=== PATIENT | male | born 1945 | race Caucasian/White ===

== ENCOUNTER 2018-09-23 07:03 | Emergency (ER) | payer MEDICARE ==
--- OUTSIDE RECORDS SUMMARY | 2018-09-23 07:12 | XMS REPORT | Continuity of Care Document ---
:1945 External Reference #:[id number] Author Name Jenny Desir Care Team Providers Name Role Phone Jeniffer Monzon MD Primary Care Physician Unavailable Payers Date Identification Numbers Payment Provider Subscriber Policy Number: [id number] [employer] Keith Oseguera PayID: [id number] [address] [place] [address] Expires: 2012 Policy Number: [id number] [facility] Zo Oseguera Group Number: [id number] [address] PayID: [id number] [place] [address] Effective: 2011 Policy Number: [id number] [facility] Keith Oseguera Onset: 2011 PayID: [id number] [address] [place] [address] Advance Directives Type Date Description Status Comment Other Directive 12/27/2012 Health Care Proxy Current and Verified Problems Active Problems Provider Date Hypoparathyroidism Jeniffer Monzon M.D. Onset: 01/23/2010 Hypothyroidism Jeniffer Monzon M.D. Onset: 07/31/2013 Psoriasis Jeniffer Monzon M.D. Onset: 01/23/2010 Kidney stone Jeniffer Monzon M.D. 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 Occasionally smokes marijuana. Smoking Status Reviewed: 09/21/18 Patient does not smoke cigarettes. Occasionally smokes marijuana. Exercise Does not exercise Type/Frequency Allergies, Adverse Reactions, Alerts Active Allergies Reaction Severity Comments Date Lipitor Elevated liver enzymes Moderate 10/02/2009 Horse-derived Products 10/02/2009 Statins 06/14/2013 Medications Active Medications SIG Qnty Indications Ordering Date Provider Levothyrn(S) Tab 0.175MG Take 1 Tablet 90units Jeniffer 11/12/19 Daily Nicolás M.DBerna 18 0.175mg Shingrix 1 dose 1units Jeniffer 07/29/19 50mcg Suspension Rec intramuscular Gus Monzon.DBerna 18 Nasonex spray two sprays 17gm R09.81 Jeniffer 04/19/19 50mcg/Act Suspension in each nostril Arlette Monzon 18 twice daily Drisdol take 1 capsule by 30caps Jeniffer 05/13/19 [id number] Capsules mouth every 3 days Nicolás M.DBerna 16 Potassium Chloride ER take 1 capsule by 30caps Jeniffer 11/01/19 10Meq mouth every day Lidia MonzonDBerna 14 Capsules ER Zetia Take 1 Tablet 90tabs Jeniffer 02/03/20 10mg Tablets Daily Nicolás M.DBerna 11 Calcium 600 2 tablets twice 360tabs Jeniffer 10/04/19 600mg Tablets daily Nicolás M.DBerna 10 Hydrocortisone Valerate topical twice 60g Jeniffer 10/04/19 0.2% daily to area as Nicolás M.D. 10 Cream needed Taclonex apply topically 100units Jeniffer 10/04/19 0.005-0.064% two times daily as Nicolás M.D. 10 Ointment needed Hydrochlorothiazide Take 1 Tablet 90tabs Jeniffer 25mg Daily Arlette Monzon 00 Tablets Dutasteride Pancho, 0.5mg Capsules MD Rk 00 Ibuprofen as needed Unknown 200mg Capsules 00 Tylenol 8 Hour as needed Unknown 650mg Tablets 00 ER Tamsulosin HCL 1 po bid 60caps [facility] 0.4mg Capsules Arlette Monzon 00 History Medications Oseltamivir Phosphate 1 by mouth once 10caps [facility] 03/17/2017 - daily for 10 days Arlette Monzon 03/28/2017 75mg Capsules Tamiflu 1 by mouth twice 10caps Monica Carroll, 06/11/2015 - 75mg Capsules a day x 5 days N.P. 06/16/2015 Ergocalciferol 1 tab by mouth 7caps [facility] 04/15/2015 - every third day Arlette Monzon 05/13/2015 [id number] Capsules Diphenoxylate-Atropin 1-2 tabs up to 4 40tabs 787.91 Ryan Dale NP 2013 - e times a day as 05/20/2014 2.5-0.025mg Tablets needed Oxycodone-Acetaminoph One to two tabs 30tabs Immanuel Niño 07/31/2013 - en by mouth every M.DBerna 09/24/2013 5-325mg Tablets 4-6 hours as needed for pain Tramadol HCL 1-2 tablets every 40tabs [facility] 05/26/2013 - 50mg 6 hours as needed Arlette Monzon 09/24/2013 Tablets up to max 6 daily Fluticasone 2 intranasal 16gm 381.81 [facility] 01/05/2013 - Propionate puffs once daily Arlette Monzon 05/20/2014 50mcg/Act Suspension Sulfamethoxazole/Trim 1 tablet twice 14tabs 782.1 [facility] 10/10/2012 - ethoprim DS daily for 7 days Arlette Monzon 01/05/2013 800-160mg Tablets Mupirocin apply to skin 22gm 782.1 [facility] 10/10/2012 - 2% Ointment lesions twice Arlette Monzon 01/05/2013 daily Triamcinolone apply bid until 30gm 686.9 Monica Carroll, 07/13/2012 - Acetonide clear N.P. 07/27/2012 0.1% Cream Ranitidine HCL Take One Tablet 60tabs 530.81 [facility] 06/05/2012 - 150mg By Mouth Twice A Arlette Monzon 07/09/2014 Tablets Day as Needed Azithromycin 2 tabs po on day 6tabs 780.79 [facility] 02/07/2012 - 250mg 1; 1 tab po qd on Arlette Monzon 06/03/2012 Tablets days 2-5 Ranitidine HCL 1 po bid prn 60caps 530.81 [facility] 01/07/2012 - 150mg Arlette Monzon 06/05/2012 Capsules Doxycycline Hyclate 1 tab po bid for 42tabs 782.1 [facility] 02/01/2011 - 21 days Arlette Monzon 04/10/[address] Doxycycline one po bid for 21 42tabs 088.81 Sugar Bo, 10/07/2010 - Monohydrate days Gus.DBerna, FAC 04/10/2011 100mg Tablets Naproxen Take One Tablet 30tabs [facility] 10/03/2009 - 500mg Tablets By Mouth Twice A Arlette Monzon 01/05/2013 Day as Needed Econazole Nitrate apply to affected 45g [facility] 10/03/2009 - 1% areas twice a day Arlette Monzon 05/20/2014 Cream x 2-3 wks Clobex [place] use twice daily 125ml [facility] 10/03/2009 - 0.05% as needed Arlette Monzon 01/05/2013 [place] Ergocalciferol 1 by mouth every Unknown 10/03/2009 - 3 days 04/15/2015 [id number] Capsules Levothyroxine Sodium 1 by mouth once Jeniffer 10/01/2009 - daily Arlette Monzon 07/31/2013 150mcg Tablets HCTZ 1 by mouth once Jeniffer 10/01/2009 - 25mg. daily Arlette Monzon 01/05/2013 Tricor 1 by mouth once 90tabs [facility] 10/01/2009 - 145mg Tablets daily Arlette Monzon 01/23/2010 Aspirin 1 by mouth once Jeniffer 10/01/2009 - 81mg Tablets DR daily Arlette Monzon 01/05/2013 Fosamax 1 by mouth once 12tabs Unknown - 70mg Tablets weekly 01/23/2010 Potassium Citrate Unknown - 01/07/2012 Tablets ER Bactrim DS 1 po bid for 7 14tabs Unknown - 800-160mg days 10/19/2010 Tablets Tazorac Unknown - Cream Unknown Metronidazole one tablet by 21tabs Unknown - 500mg mouth 2 times 05/20/2014 Tablets daily for 7 days Levothyroxine Sodium take 1 tablet by 90tabs Jeniffer - mouth every day Arlette Monzon 11/11/2017 175mcg Tablets Immunizations CPT Code Status Date Vaccine Lot # [id number] Given 07/08/2018 Zoster (Shingles) Vaccine (HZV), Recombinant, Subunit, Adjuvanted [id number] Given 12/14/2017 Influenza Virus Vaccine, Quadrivalent, Split, Preservative Free 47821 Given 12/17/2016 Fluzone High Dose 53876 Given 02/05/2015 Tdap - Tetanus/Diptheria/Acellular Pertussis [id number] 63837 Given 01/16/2015 Influenza Virus Vaccine, Quadrivalent, Split, [id number] Preservative Free 37312 Given 01/16/2015 Pneumococcal Conjugate Vaccine 13 Valent For [id number] Intramuscular Use 25166 Given 01/08/2014 Flu Vaccine Split Virus Preservative Free For [id number] Indiv 3Yr Older 90611 Given 01/05/2013 Flu Vaccine Split Virus Preservative Free For [id number] Indiv 3Yr Older [id number] Given 01/07/2012 Fluvirin Im 3Yrs And Older [id number] 72463 Given 04/22/2011 Pneumonia Vaccine [id number] 46810 Given 09/30/2008 Zoster (Zostavax) 22275 Given 02/01/2007 Influenza Virus 3Yrs & Over Vital Signs Date Vital Result Comment 09/21/2018 4:29pm Height 71.75 inches 5'11.75" Weight 208.00 lb Heart Rate 70 /min BP Systolic 113 mmHg BP Diastolic 68 mmHg O2 % BldC Oximetry 97 % BMI (Body Mass Index) 28.4 kg/m2 05/02/2018 1:14pm Height 71.75 inches 5'11.75" Weight 213.00 lb Heart Rate 82 /min BP Systolic Sitting 115 mmHg BP Diastolic Sitting 68 mmHg O2 % BldC Oximetry 95 % BMI (Body Mass Index) 29.1 kg/m2 04/19/2017 10:45am Height 71.75 inches 5'11.75" Weight 197.25 lb Heart Rate 57 /min BP Systolic 130 mmHg BP Diastolic 60 mmHg Body Temperature 97.1 F O2 % BldC Oximetry 98 % BMI (Body Mass Index) 26.9 kg/m2 03/22/2017 11:23am Height 71 inches 5'11" Weight 193.50 lb Heart Rate 66 /min BP Systolic 120 mmHg BP Diastolic 66 mmHg Body Temperature 98.9 F O2 % BldC Oximetry 97 % BMI (Body Mass Index) 27.0 kg/m2 12/16/2016 11:40am Height 71 inches 5'11" Weight 191.75 lb Heart Rate 66 /min BP Systolic 110 mmHg BP Diastolic 50 mmHg Body Temperature 97.6 F O2 % BldC Oximetry 98 % BMI (Body Mass Index) 26.7 kg/m2 07/27/2016 11:17am Height 71 inches 5'11" Weight 198.50 lb Heart Rate 58 /min BP Systolic 120 mmHg BP Diastolic 70 mmHg Respiratory Rate 16 /min O2 % BldC Oximetry 98 % BMI (Body Mass Index) 27.7 kg/m2 12/04/2015 9:55am Height 71.5 inches 5'11.50" Weight 203.50 lb Heart Rate 67 /min BP Systolic 120 mmHg BP Diastolic 69 mmHg Body Temperature 97.4 F O2 % BldC Oximetry 96 % BMI (Body Mass Index) 28.0 kg/m2 10/24/2015 10:26am Weight 198.50 lb Heart Rate 70 /min BP Systolic Sitting 117 mmHg BP Diastolic Sitting 66 mmHg Body Temperature 97.8 F O2 % BldC Oximetry 97 % 06/11/2015 10:06am Height 71.5 inches 5'11.50" Weight 199.75 lb Heart Rate 83 /min BP Systolic Sitting 132 mmHg BP Diastolic Sitting 68 mmHg Respiratory Rate 16 /min Body Temperature 96.7 F Pain Level 3 O2 % BldC Oximetry 98 % BMI (Body Mass Index) 27.5 kg/m2 03/26/2015 2:09pm Height 71.5 inches 5'11.50" Weight 206.00 lb Heart Rate 58 /min BP Systolic Sitting 124 mmHg BP Diastolic Sitting 60 mmHg Body Temperature 96.0 F Pain Level 2 O2 % BldC Oximetry 96 % BMI (Body Mass Index) 28.3 kg/m2 01/16/2015 3:53pm Height 71.5 inches 5'11.50" Weight 207.50 lb Heart Rate 58 /min BP Systolic Sitting 103 mmHg BP Diastolic Sitting 60 mmHg Body Temperature 97.3 F O2 % BldC Oximetry 97 % BMI (Body Mass Index) 28.5 kg/m2 07/09/2014 10:02am Weight 204.00 lb Heart Rate 64 /min BP Systolic Sitting 128 mmHg BP Diastolic Sitting 64 mmHg Body Temperature 96.4 F 05/20/2014 3:17pm Height 72 inches 6'0" Weight 199.00 lb Heart Rate 69 /min BP Systolic 126 mmHg BP Diastolic 74 mmHg Body Temperature 97.8 F BMI (Body Mass Index) 27.0 kg/m2 02/26/2014 1:19pm Height 72 inches 6'0" Weight 200.00 lb Heart Rate 68 /min Pain Level 3 BMI (Body Mass Index) 27.1 kg/m2 01/08/2014 3:35pm Height 72 inches 6'0" Weight 200.75 lb Heart Rate 68 /min BP Systolic Sitting 132 mmHg BP Diastolic Sitting 68 mmHg BMI (Body Mass Index) 27.2 kg/m2 11/22/2013 8:00am Height 72 inches 6'0" Weight 195.00 lb Heart Rate 55 /min BP Systolic 120 mmHg BP Diastolic 76 mmHg BMI (Body Mass Index) 26.4 kg/m2 10/22/2013 9:02am Height 72 inches 6'0" Weight 194.00 lb Heart Rate 60 /min BP Systolic Sitting 132 mmHg BP Diastolic Sitting 66 mmHg Body Temperature 97.8 F BMI (Body Mass Index) 26.3 kg/m2 10/15/2013 1:43pm Height 72 inches 6'0" Weight 194.00 lb Heart Rate 64 /min BP Systolic Sitting 118 mmHg BP Diastolic Sitting 62 mmHg BP Systolic Standing 118 mmHg Pulse 80 BP Diastolic Standing 76 mmHg Pulse 80 BP Systolic Lying Down 138 mmHg Pulse 72 BP Diastolic Lying Down 78 mmHg Pulse 72 Body Temperature 97.9 F BMI (Body Mass Index) 26.3 kg/m2 10/11/2013 7:53am Height 72 inches 6'0" Weight 215.00 lb Heart Rate 66 /min BP Systolic 136 mmHg BP Diastolic 74 mmHg BMI (Body Mass Index) 29.2 kg/m2 09/27/2013 10:12am Weight 204.00 lb Heart Rate 66 /min BP Systolic Sitting 116 mmHg BP Diastolic Sitting 62 mmHg Body Temperature 96.4 F 09/24/2013 3:13pm Weight 205.00 lb with arm brace Heart Rate 60 /min BP Systolic Sitting 134 mmHg BP Diastolic Sitting 74 mmHg Body Temperature 96.8 F 09/04/2013 8:03am Height 72 inches 6'0" Weight 215.00 lb Body Temperature 98.4 F BMI (Body Mass Index) 29.2 kg/m2 07/31/2013 1:07pm Height 72 inches 6'0" Weight 214.00 lb Heart Rate 80 /min BP Systolic 98 mmHg BP Diastolic 63 mmHg BMI (Body Mass Index) 29.0 kg/m2 07/31/2013 11:32am Height 72 inches 6'0" Weight 219.50 lb Heart Rate 64 /min BP Systolic Sitting 120 mmHg BP Diastolic Sitting 70 mmHg BMI (Body Mass Index) 29.8 kg/m2 06/14/2013 9:36am Height 72 inches 6'0" Weight 215.00 lb Heart Rate 64 /min BP Systolic 147 mmHg BP Diastolic 74 mmHg BMI (Body Mass Index) 29.2 kg/m2 03/27/2013 3:37pm Height 72 inches 6'0" Weight 223.00 lb Heart Rate 72 /min BP Systolic Sitting 149 mmHg BP Diastolic Sitting 78 mmHg BMI (Body Mass Index) 30.2 kg/m2 01/05/2013 10:59am Height 72 inches 6'0" Weight 217.00 lb Heart Rate 60 /min BP Systolic Sitting 140 mmHg BP Diastolic Sitting 80 mmHg BMI (Body Mass Index) 29.4 kg/m2 10/10/2012 10:53am Weight 220.50 lb Heart Rate 56 /min BP Systolic Sitting 108 mmHg BP Diastolic Sitting 60 mmHg Body Temperature 97.0 F 07/13/2012 8:42am Weight 222.00 lb Heart Rate 80 /min BP Systolic Sitting 120 mmHg BP Diastolic Sitting 60 mmHg Body Temperature 98.7 F 06/05/2012 8:35am Height 71 inches 5'11" Weight 217.00 lb Heart Rate 60 /min BP Systolic Sitting 124 mmHg BP Diastolic Sitting 60 mmHg BMI (Body Mass Index) 30.3 kg/m2 02/07/2012 12:47pm Height 71 inches 5'11" Weight 220.00 lb Heart Rate 64 /min BP Systolic Sitting 130 mmHg BP Diastolic Sitting 80 mmHg Body Temperature 99.3 F BMI (Body Mass Index) 30.7 kg/m2 01/07/2012 2:00pm Weight 217.00 lb Heart Rate 60 /min BP Systolic 130 mmHg BP Diastolic 76 mmHg 07/16/2011 11:26am Height 71 inches 5'11" Weight 202.00 lb Heart Rate 64 /min BP Systolic Sitting 112 mmHg BP Diastolic Sitting 60 mmHg Body Temperature 98.5 F BMI (Body Mass Index) 28.2 kg/m2 05/06/2011 1:00pm Height 71 inches 5'11" Weight 210.50 lb Heart Rate 60 /min BP Systolic Sitting 122 mmHg BP Diastolic Sitting 64 mmHg BMI (Body Mass Index) 29.4 kg/m2 04/22/2011 8:50am Height 71 inches 5'11" Weight 208.00 lb Heart Rate 78 /min BP Systolic Sitting 142 mmHg BP Diastolic Sitting 80 mmHg BMI (Body Mass Index) 29.0 kg/m2 03/30/2011 8:47am Height 71 inches 5'11" Weight 208.00 lb Heart Rate 76 /min BP Systolic Sitting 126 mmHg BP Diastolic Sitting 78 mmHg BMI (Body Mass Index) 29.0 kg/m2 02/01/2011 11:28am Height 71 inches 5'11" Weight 209.00 lb Heart Rate 80 /min BP Systolic Sitting 130 mmHg BP Diastolic Sitting 78 mmHg BMI (Body Mass Index) 29.1 kg/m2 10/19/2010 8:49am Height 71 inches 5'11" Weight 200.00 lb Heart Rate 66 /min BP Systolic Sitting 132 mmHg BP Diastolic Sitting 80 mmHg BMI (Body Mass Index) 27.9 kg/m2 10/07/2010 10:23am Height 71 inches 5'11" Weight 206.00 lb Heart Rate 68 /min BP Systolic Sitting 136 mmHg BP Diastolic Sitting 78 mmHg Body Temperature 98.5 F BMI (Body Mass Index) 28.7 kg/m2 08/31/2010 1:16pm Height 71 inches 5'11" Weight 206.00 lb Heart Rate 84 /min BP Systolic Sitting 132 mmHg BP Diastolic Sitting 84 mmHg BMI (Body Mass Index) 28.7 kg/m2 04/14/2010 8:32am Weight 208.00 lb Heart Rate 60 /min BP Systolic 118 mmHg BP Diastolic 64 mmHg 02/03/2010 9:24am Weight 201.75 lb Heart Rate 60 /min BP Systolic 130 mmHg BP Diastolic 60 mmHg Body Temperature 98.3 F 01/23/2010 4:09pm Heart Rate 60 /min BP Systolic 120 mmHg BP Diastolic 60 mmHg Body Temperature 99.1 F 12/12/2009 9:17am Weight 206.75 lb Heart Rate 56 /min BP Systolic 134 mmHg BP Diastolic 76 mmHg 10/03/2009 9:11am Height 72.25 inches 6'0.25" Weight 206.50 lb Heart Rate 52 /min BP Systolic Recheck 136 mmHg BP Diastolic Recheck 82 mmHg BMI (Body Mass Index) 27.8 kg/m2 Results Test Date Facility Test Result H/L Range Note Lipid Profile 04/24/2018 [facility] Triglycerides 116 mg/dL 1 (Trig/Chol/HDL) [address] [place] [address] [phone] Cholesterol 220 mg/dL 2 HDL Cholesterol 66.8 mg/dL 3 LDL Cholesterol 130 mg/dL 4 Laboratory test 04/24/2018 [facility] Hemoglobin A1c 6.2 % High 4.0-5.6 5 finding [address] [facility] (Glyco HGB) [place] [address] [phone] Ast (Sgot) 17 U/L N 13-39 6 Alt 19 U/L N 7-52 7 Laboratory test 04/14/2018 [facility] PSA Diagnostic 1.873 ng/ mL 0-4.0 8 finding [address] [place] [address] [phone] Basic Metabolic 02/06/2018 [facility] Sodium 141 mmol/L N 135- 145 Panel [address] [place] [address] [phone] Potassium 4.3 mmol/L N 3.5-5.0 Chloride 100 mmol/L Low 101-111 Co2 Carbon Dioxide 33 mmol/L High 22-32 Anion Gap 8 mmol/L N 2-11 Glucose 103 mg/dL High 70-100 Blood Urea Nitrogen 25 mg/dL High 6-24 Creatinine 0.95 mg/dL N 0.67-1.17 BUN/Creatinine Ratio 26.3 High 8-20 Calcium 8.3 mg/dL Low 8.6-10.3 Egfr Non- 78.2 >60 Egfr 94.6 >60 9 Laboratory test 02/06/2018 [facility] TSH (Thyroid 0.65 mcIU/mL N 0.34-5.[address] Stim Horm) [place] [address] [phone] Free T4 (Free Thyroxine) 1.44 ng/dL High 0.61-1.12 Vitamin D Total 25(Oh) 71.5 ng/mL High 20-50 Laboratory test 04/27/2017 [facility] PSA Screening 1.970 ng/mL 0-4.0 [address] [place] [address] [phone] Lipid Profile 04/11/2017 [facility] Triglycerides 97 mg/dL 11 (Trig/Chol/HDL) [address] [place] [address] [phone] Cholesterol 191 mg/dL 12 HDL Cholesterol 61.5 mg/dL 13 LDL Cholesterol 110 mg/dL 14 Laboratory test 04/11/2017 [facility] Hemoglobin A1c 6.1 % High 4.0-5.6 [address] (Glyco HGB) [place] [address] [phone] CBC Auto Diff 04/11/2017 [facility] White Blood 6.4 N 3.5- 10.[address] Count 10^3/[place] [address] [phone] Red Blood Count 4.37 10^6/uL N 4.0-5.4 Hemoglobin 14.3 g/dL N 14.0-18.0 Hematocrit 42 % N 42-52 Mean Corpuscular Volume 95 fL High 80-94 Mean Corpuscular Hemoglobin 33 pg High 27-31 Mean Corpuscular HGB Conc 35 g/dL N 31-36 Red Cell Distribution Width 16 % High 10.5-15 Platelet Count 222 10^3/uL N 150-450 Mean Platelet Volume 9 um3 N 7.4-10.4 Abs Neutrophils 3.5 10^3/uL N 1.5-7.7 Abs Lymphocytes 2.3 10^3/uL N 1.0-4.8 Abs Monocytes 0.4 10^3/uL N 0-0.8 Abs Eosinophils 0.1 10^3/uL N 0-0.6 Abs Basophils 0.1 10^3/uL N 0-0.2 Abs Nucleated RBC 0 10^3/uL Granulocyte % 55.3 % N 38-83 Lymphocyte % 35.6 % N 25-47 Monocyte % 6.5 % N 1-9 Eosinophil % 1.6 % N 0-6 Basophil % 1.0 % N 0-2 Nucleated Red Blood Cells % 0.1 Laboratory test 04/11/2017 [facility] Glucose 107 mg/dL High 70-[address] [place] [address] [phone] Laboratory test 01/04/2017 [facility] TSH (Thyroid 1.94 N 0.34 -5.[address] Stim Horm) mcIU/[place] [address] [phone] Free T4 (Free Thyroxine) 1.21 ng/dL High 0.61-1.12 Vitamin D Total 25(Oh) 81.2 ng/mL High 20-50 Comp Metabolic Panel 01/04/2017 [facility] Sodium 139 mmol/L N 133-145 [address] [place] [address] [phone] Potassium 4.1 mmol/L N 3.5-5.0 Chloride 101 mmol/L N 101-111 Co2 Carbon Dioxide 30 mmol/L N 22-32 Anion Gap 8 mmol/L N 2-11 Glucose 99 mg/dL N 70-100 Blood Urea Nitrogen 24 mg/dL N 6-24 Creatinine 1.02 mg/dL N 0.67-1.17 BUN/Creatinine Ratio 23.5 High 8-20 Calcium 8.2 mg/dL Low 8.6-10.3 Total Protein 6.8 g/dL N 6.4-8.9 Albumin 4.0 g/dL N 3.2-5.2 Globulin 2.8 g/dL N 2-4 Albumin/Globulin Ratio 1.4 N 1-3 Total Bilirubin 0.40 mg/dL N 0.2-1.0 Alkaline Phosphatase 55 U/L N 34-104 Alt 16 U/L N 7-52 Ast 16 U/L N 13-39 Egfr Non- 72.2 N >60 Egfr 92.9 N >60 16 CBC Auto Diff 01/04/2017 [facility] White Blood 7.0 10^3/uL N 3.5-10.[address] [place] [address] [phone] Red Blood Count 4.23 10^6/uL N 4.0-5.4 Hemoglobin 13.7 g/dL Low 14.0-18.0 Hematocrit 41 % Low 42-52 Mean Corpuscular Volume 97 fL High 80-94 Mean Corpuscular Hemoglobin 32 pg High 27-31 Mean Corpuscular HGB Conc 33 g/dL N 31-36 Red Cell Distribution Width 16 % High 10.5-15 Platelet Count 249 10^3/uL N 150-450 Mean Platelet Volume 9 um3 N 7.4-10.4 Abs Neutrophils 4.0 10^3/uL N 1.5-7.7 Abs Lymphocytes 2.2 10^3/uL N 1.0-4.8 Abs Monocytes 0.6 10^3/uL N 0-0.8 Abs Eosinophils 0.1 10^3/uL N 0-0.6 Abs Basophils 0.1 10^3/uL N 0-0.2 Abs Nucleated RBC 0 10^3/uL N Granulocyte % 56.9 % N 38-83 Lymphocyte % 31.8 % N 25-47 Monocyte % 8.3 % N 1-9 Eosinophil % 1.6 % N 0-6 Basophil % 1.4 % N 0-2 Nucleated Red Blood Cells % 0 N Laboratory test 09/06/2016 [facility] PSA Diagnostic 3.625 N 0 -4.0 [address] ng/[place] [address] [phone] Comp Metabolic 06/28/2016 [facility] Sodium 140 mmol/L N 133- [address] [place] [address] [phone] Potassium 3.8 mmol/L N 3.5-5.0 Chloride 101 mmol/L N 101-111 Co2 Carbon Dioxide 33 mmol/L High 22-32 Anion Gap 6 mmol/L N 2-11 Glucose 108 mg/dL High 70-100 Blood Urea Nitrogen 20 mg/dL N 6-24 Creatinine 0.98 mg/dL N 0.67-1.17 BUN/Creatinine Ratio 20.4 High 8-20 Calcium 8.6 mg/dL N 8.6-10.3 Total Protein 7.2 g/dL N 6.4-8.9 Albumin 4.2 g/dL N 3.2-5.2 Globulin 3.0 g/dL N 2-4 Albumin/Globulin Ratio 1.4 N 1-3 Total Bilirubin 0.60 mg/dL N 0.2-1.0 Alkaline Phosphatase 57 U/L N 34-104 Alt 15 U/L N 7-52 Ast 16 U/L N 13-39 Egfr Non- 75.6 N >60 Egfr 97.2 N >60 18 Laboratory test 06/28/2016 [facility] Free T4 (Free 1.48 High 0.61-1.[address] Thyroxine) ng/[place] [address] [phone] Vitamin D Total 25(Oh) 92.3 ng/mL High 30-50 Lipid Profile 06/28/2016 [facility] Triglycerides 100 mg/dL N 19 (Trig/Chol/HDL) [address] [place], [place] [id number] [phone] Cholesterol 199 mg/dL N 20 HDL Cholesterol 59.1 mg/dL N 21 LDL Cholesterol 120 mg/dL N 22 Comp Metabolic Panel 06/28/2016 [facility] Sodium 140 mmol/L N 133-[address] [place], [place] [id number] [phone] Potassium 3.8 mmol/L N 3.5-5.0 Chloride 101 mmol/L N 101-111 Co2 Carbon Dioxide 33 mmol/L High 22-32 Anion Gap 6 mmol/L N 2-11 Glucose 110 mg/dL High 70-100 Blood Urea Nitrogen 20 mg/dL N 6-24 Creatinine 0.98 mg/dL N 0.67-1.17 BUN/Creatinine Ratio 20.4 High 8-20 Calcium 8.7 mg/dL N 8.6-10.3 Total Protein 7.3 g/dL N 6.4-8.9 Albumin 4.1 g/dL N 3.2-5.2 Globulin 3.2 g/dL N 2-4 Albumin/Globulin Ratio 1.3 N 1-3 Total Bilirubin 0.70 mg/dL N 0.2-1.0 Alkaline Phosphatase 58 U/L N 34-104 Alt 16 U/L N 7-52 Ast 18 U/L N 13-39 Egfr Non- 75.6 N >60 Egfr 97.2 N >60 23 Laboratory test 06/28/2016 [facility] Hemoglobin A1c 6.0 % N Less than [address] (Glyco HGB) 6.[address] [place] [address] [phone] TSH (Thyroid Stim Horm) 1.49 mcIU/mL N 0.34-5.60 25 Laboratory test 01/13/2016 [facility] PSA Screening 2.875 ng/mL N 0-4.0 [address] [place] [address] [phone] Basic Metabolic 07/23/2015 [facility] Sodium 137 mmol/L N 133- [address] [place] [address] [phone] Potassium 3.9 mmol/L N 3.5-5.0 Chloride 98 mmol/L Low 101-111 Co2 Carbon Dioxide 30 mmol/L N 22-32 Anion Gap 9 mmol/L N 2-11 Glucose 96 mg/dL N 70-100 Blood Urea Nitrogen 29 mg/dL High 6-24 Creatinine 1.02 mg/dL N 0.67-1.17 BUN/Creatinine Ratio 28.4 High 8-20 Calcium 8.6 mg/dL N 8.6-10.3 Egfr Non- 72.4 N >60 Egfr 93.1 N >60 27 Laboratory test 07/23/2015 [facility] TSH (Thyroid 2.96 ?IU/mL N 0.34-5.[address] Stim Horm) [place] [address] [phone] Vitamin D Total 25(Oh) 78.7 ng/mL High 30-50 Laboratory test 07/23/2015 [facility] Blood Urea 30 mg/dL High 6-[address] [place] [address] [phone] Creatinine 07/23/2015 [facility] Creatinine 1.05 mg/dL N 0.67- 1.[address] [place] [address] [phone] Egfr Non- 70.0 N >60 Egfr 90.1 N >60 28 Laboratory test 06/11/2015 [facility] Influenza A & SEE RESULT [address] [place] [address] [phone] Rapid Influenza 06/11/2015 [facility] Influenza A NEGATIVE N Negative 30 A & B Molecular [address] [place] [address] [phone] Influenza B Molecular POSITIVE Abnormal Negative Lipid Profile 01/01/2015 [facility] Triglycerides 85 mg/dL N 31, 32 (Trig/Chol/HDL) [address] [place] [address] [phone] Cholesterol 193 mg/dL N 33 HDL Cholesterol 56.4 mg/dL N 34 LDL Cholesterol 120 mg/dL N 35 Comp Metabolic Panel 01/01/2015 [facility] Sodium 137 mmol/L N 133-145 [address] [place] [address] [phone] Potassium 4.0 mmol/L N 3.5-5.0 Chloride 100 mmol/L Low 101-111 Co2 Carbon Dioxide 31 mmol/L N 22-32 Anion Gap 6 mmol/L N 2-11 Glucose 108 mg/dL High 70-100 Blood Urea Nitrogen 20 mg/dL N 6-24 Creatinine 0.95 mg/dL N 0.67-1.17 BUN/Creatinine Ratio 21.1 High 8-20 Calcium 8.2 mg/dL Low 8.6-10.3 Total Protein 7.1 g/dL N 6.4-8.9 Albumin 4.1 g/dL N 3.2-5.2 Globulin 3.0 g/dL N 2-4 Albumin/Globulin Ratio 1.4 N 1-3 Total Bilirubin 0.40 mg/dL N 0.2-1.0 Alkaline Phosphatase 58 U/L N 34-104 Alt 25 U/L N 7-52 Ast 20 U/L N 13-39 Egfr Non- 78.8 N >60 Egfr 101.4 N >60 36 Laboratory test 01/01/2015 [facility] Hemoglobin A1c 5.7 % N Less than 37 finding 101 [facility] (Glyco HGB) 6.0 [place] [address] [phone] TSH (Thyroid Stim Horm) 4.41 ?IU/mL N 0.34-5.60 38 Calcium,24 01/01/2015 [facility] Urine Calcium 127 mg/spec N 39 Hour,Urine [address] [place] [address] [phone] Urine Collection Duration 24 h N Urine Volume 1900 mL N Urine Calcium Conc 67 mg/L N 40 Creatinine Clearance 01/01/2015 [facility] Urine Collection Time [address] [place] [address] [phone] Urine Total Volume 1900 mL N Urine Random Creatinine 105.56 mg/dL N Creatinine 0.94 mg/dL N 0.51-0.95 Creatinine Clearance 148 mL/min High 97-137 Laboratory test 01/01/2015 [facility] Vitamin D Total 105.1 High 30-[address] 25(Oh) ng/[place] [address] [phone] Laboratory test 12/12/2014 [facility] PSA Diagnostic 2.437 N 0 -4.[address] ng/[place] [address] [phone] Basic Metabolic 04/23/2014 [facility] Sodium 139 N 133-[address] mmol/[place] [address] [phone] Potassium 3.9 mmol/L N 3.5-5.0 Chloride 100 mmol/L Low 101-111 Co2 Carbon Dioxide 32 mmol/L N 22-32 Anion Gap 7 mmol/L N 2-11 Glucose 139 mg/dL High 70-100 Blood Urea Nitrogen 16 mg/dL N 6-24 Creatinine 1.07 mg/dL N 0.67-1.17 BUN/Creatinine Ratio 15.0 N 8-20 Calcium 8.3 mg/dL Low 8.6-10.3 Egfr Non- 68.7 N >60 Egfr 88.4 N >60 42 Vitamin D, 25 04/23/2014 [facility] 25-Hydroxy Vitamin 68 ng/mL N Hydroxy [address] D2 [place] [address] [phone] 25-Hydroxy Vitamin D3 9.7 ng/mL N 25-Hydroxy Vitamin D Total 78 ng/mL N 43 Laboratory test 02/04/2014 [facility] Calcium 7.9 mg/dL Low 8.6-10.[address] [place] [address] [phone] Lipid Profile 12/27/2013 [facility] Triglycerides 70 mg/dL N 44 (Trig/Chol/HDL) [address] [place] [address] [phone] Cholesterol 162 mg/dL N 45 HDL Cholesterol 56.5 mg/dL N 46 LDL Cholesterol 92 mg/dL N 47 Basic Metabolic Panel 12/12/2013 [facility] Sodium 138 mmol/L N 133-[address] [place] [address] [phone] Potassium 4.3 mmol/L N 3.7-5.6 Chloride 102 mmol/L N 101-111 Co2 Carbon Dioxide 32 mmol/L N 22-32 Anion Gap 4 mmol/L N 2-11 Glucose 110 mg/dL High 70-100 Blood Urea Nitrogen 20 mg/dL N 6-24 Creatinine 0.96 mg/dL N 0.67-1.17 BUN/Creatinine Ratio 20.8 High 8-20 Calcium 8.0 mg/dL Low 8.6-10.3 Egfr Non- 78.1 N >60 Egfr 100.5 N >60 48 Vitamin D, 25 12/12/2013 [facility] 25-Hydroxy Vitamin 70 ng/mL [address] [place] [address] [phone] 25-Hydroxy Vitamin D3 4.7 ng/mL N 25-Hydroxy Vitamin D Total 75 ng/mL N 49 Basic Metabolic Panel 11/19/2013 [facility] Sodium 140 mmol/L N 133-[address] [place] [address] [phone] Potassium 3.8 mmol/L N 3.7-5.6 Chloride 101 mmol/L N 101-111 Co2 Carbon Dioxide 30 mmol/L N 22-32 Anion Gap 9 mmol/L N 2-11 Glucose 122 mg/dL High 70-100 Blood Urea Nitrogen 12 mg/dL N 6-24 Creatinine 0.95 mg/dL N 0.67-1.17 BUN/Creatinine Ratio 12.6 N 8-20 Calcium 8.1 mg/dL Low 8.6-10.3 Egfr Non- 79.1 N >60 Egfr 101.7 N >60 50 Surgical 10/31/2013 [facility] S RUN DATE: [address] 11/02/ <[place] [address] NOTE> [phone] Stool Culture 10/31/2013 [facility] Stool Culture (SEE NOTE) [address] [place] [address] [phone] Laboratory test 10/31/2013 [facility] Fecal Lactoferrin (SEE NOTE) [address] (Stool WBC) [place] [address] [phone] O P: Giardia/Cryptospor Screen (SEE NOTE) 54 Basic Metabolic Panel 10/29/2013 [facility] Sodium 138 mmol/L N 133-[address] [place] [address] [phone] Potassium 3.5 mmol/L Low 3.7-5.6 Chloride 99 mmol/L Low 101-111 Co2 Carbon Dioxide 29 mmol/L N 22-32 Anion Gap 10 mmol/L N 2-11 Glucose 141 mg/dL High 70-100 Blood Urea Nitrogen 15 mg/dL N 6-24 Creatinine 1.07 mg/dL N 0.67-1.17 BUN/Creatinine Ratio 14.0 N 8-20 Calcium 8.0 mg/dL Low 8.6-10.3 Egfr Non- 68.9 N >60 Egfr 88.7 N >60 55 Laboratory test 10/29/2013 [facility] TSH (Thyroid 1.89 IU/mL N 0.34-5.[address] [place] [address] Horm) [phone] Vitamin D, 25 10/29/2013 [facility] 25-Hydroxy 100 ng/mL N Hydroxy [address] Vitamin D2 [place] [address] [phone] 25-Hydroxy Vitamin D3 6.2 ng/mL N 25-Hydroxy Vitamin D Total 106 ng/mL Abnormal 56 Laboratory 10/29/2013 [facility] PSA Diagnostic 2.496 N 0-4.0 57 test finding [address] ng/[place] [address] [phone] Laboratory 10/19/2013 [facility] Eosinophil Count 0.1 N test finding [address] [place] [address] [phone] Celiac Panel 10/19/2013 [facility] Immunoglobulin A 436 Abnormal 61 - [address] mg/dL 356 [place] [address] [phone] Tissue Transglutaminase IgA Ab <1.2 U/mL N 58 Celiac Interpretation See Comment N 59 Laboratory 10/19/2013 [facility] Entamoeba Negative N Negative 60 test finding [address] [place] [address] Antibody [phone] Laboratory 10/02/2013 Stool Culture (SEE NOTE) 61, test finding 62 Laboratory 09/27/2013 [facility] Stool Culture (SEE NOTE) [address] [place] [address] [phone] C. difficile Amplified Dna (SEE NOTE) 64 CBC Auto Diff 09/27/2013 [facility] White Blood 8.0 10^3/uL N 4.8-10.[address] [place] [address] [phone] Red Blood Count 4.34 10^6/uL N 4.0-5.4 Hemoglobin 14.1 g/dL N 14.0-18.0 Hematocrit 41 % Low 42-52 Mean Corpuscular Volume 94 fL N 80-94 Mean Corpuscular Hemoglobin 32 pg High 27-31 Mean Corpuscular HGB Conc 34 g/dL N 31-36 Red Cell Distribution Width 16 % High 10.5-15 Platelet Count 257 10^3/uL N 150-450 65 Mean Platelet Volume 9 um3 N 7.4-10.4 66 Abs Neutrophils 5.0 10^3/uL N 1.5-7.7 Abs Lymphocytes 2.1 10^3/uL N 1.0-4.8 Abs Monocytes 0.7 10^3/uL N 0-0.8 Abs Eosinophils 0.1 10^3/uL N 0-0.6 Abs Basophils 0.1 10^3/uL N 0-0.2 Abs Nucleated RBC 0.01 10^3/uL N Granulocyte % 62.4 % N 38-83 Lymphocyte % 26.7 % N 25-47 Monocyte % 8.8 % N 1-9 Eosinophil % 0.9 % N 0-6 Basophil % 1.2 % N 0-2 Nucleated Red Blood Cells % 0.1 N Comp Metabolic Panel 09/27/2013 [facility] Sodium 139 mmol/L N 133-[address] [place] [address] [phone] Potassium 3.5 mmol/L Low 3.7-5.6 Chloride 102 mmol/L N 101-111 Co2 Carbon Dioxide 31 mmol/L N 22-32 Anion Gap 6 mmol/L N 2-11 Glucose 72 mg/dL N 70-100 Blood Urea Nitrogen 20 mg/dL N 6-24 Creatinine 1.07 mg/dL N 0.67-1.17 BUN/Creatinine Ratio 18.7 N 8-20 Calcium 7.5 mg/dL Low 8.6-10.3 Total Protein 7.2 g/dL N 6.4-8.9 Albumin 4.3 g/dL N 3.2-5.2 Globulin 2.9 g/dL N 2-4 Albumin/Globulin Ratio 1.5 N 1-3 Total Bilirubin 0.50 mg/dL N 0.2-1.0 Alkaline Phosphatase 58 U/L N 34-104 Alt 48 U/L N 7-52 Ast 36 U/L N 13-39 Egfr Non- 68.9 N >60 Egfr 88.7 N >60 67 Surgical Pathology 08/22/2013 [facility] S RUN DATE: [address] 08/23/ <[place] [address] NOTE> [phone] Basic Metabolic 08/02/2013 [facility] Sodium 137 mmol/L N 133- [address] [place] [address] [phone] Potassium 4.2 mmol/L N 3.7-5.6 Chloride 98 mmol/L Low 101-111 Co2 Carbon Dioxide 32 mmol/L N 22-32 Anion Gap 7 mmol/L N 2-11 Glucose 138 mg/dL High 70-100 Blood Urea Nitrogen 20 mg/dL N 6-24 Creatinine 1.11 mg/dL N 0.67-1.17 BUN/Creatinine Ratio 18.0 N 8-20 Calcium 8.2 mg/dL Low 8.6-10.3 Egfr Non- 66.1 N >60 Egfr 85.0 N >60 69 Laboratory test 06/18/2013 [facility] Hemoglobin A1c 6.1 % High Less than [address] 6[address]0 [place] [address] [phone] Hepatitis C Antibody Nonreactive N Nonreactive Vitamin D, 25 05/04/2013 [facility] 25-Hydroxy Vitamin 75 ng/mL Hydroxy [address] D2 [place] [address] [phone] 25-Hydroxy Vitamin D3 3.0 ng/mL 25-Hydroxy Vitamin D Total 78 ng/mL 71 Laboratory test 05/04/2013 [facility] TSH (Thyroid 6.57 High 0.34-5.[address] Stimulating IU/[place] [address] Horm) [phone] Basic Metabolic 05/04/2013 [facility] Sodium 140 133-[address] mmol/[place] [address] [phone] Potassium 4.2 mmol/L 3.7-5.6 Chloride 102 mmol/L 101-111 Co2 Carbon Dioxide 31 mmol/L 22-32 Anion Gap 7 mmol/L 2-11 Glucose 110 mg/dL High 70-100 Blood Urea Nitrogen 24 mg/dL 6-24 Creatinine 1.08 mg/dL 0.67-1.17 BUN/Creatinine Ratio 22.2 High 8-20 Calcium 8.2 mg/dL Low 8.6-10.3 Egfr Non- 68.2 >60 Egfr 87.7 >60 72 Creatinine 01/23/2013 [facility] Urine Random 78.2 mg/dL Clearance [address] [place] [address] [phone] Creatinine 0.9 mg/dL 0.5-1.4 Creatinine Clearance 154 mL/min High 97-137 Urine Collection Time 24 Urine Total Volume 2550 mL Calcium 24HR Urine 01/23/2013 [facility] Urine Random 8.1 mg/dL [address] [place] [address] [phone] Urine Calcium/24HR 206.5 mg/24Hr 50-400 Vitamin D, 25 01/23/2013 [facility] 25-Hydroxy Vitamin 86 ng/mL Hydroxy [address] D2 [place] [address] [phone] 25-Hydroxy Vitamin D3 5.2 ng/mL 25-Hydroxy Vitamin D Total 91 ng/mL Abnormal 73 Laboratory test 01/23/2013 [facility] TSH (Thyroid 3.14 0.34- 5.60 [address] Stimulating miu/[place] [address] Horm) [phone] Basic Metabolic 01/23/2013 [facility] Sodium 139 mmol/L 133- [address] [place] [address] [phone] Potassium 4.2 mmol/L 3.5-5.0 Chloride 101 mmol/L 101-111 Co2 Carbon Dioxide 30.0 mmol/L 22-32 Anion Gap 8.0 mmol/L 2-11 Glucose 113 mg/dL High 70-100 Blood Urea Nitrogen 15 mg/dL 6-24 Creatinine 1.00 mg/dL 0.50-1.40 BUN/Creatinine Ratio 15.0 8-20 Calcium 8.4 mg/dL 8.1-9.9 Egfr Non- 74.8 >60 Egfr 96.1 >60 75 Laboratory test 12/25/2012 [facility] Vitamin B12 311 pg/mL 180-914 [address] [place] [address] [phone] TSH (Thyroid Stimulating Horm) 4.55 miu/mL 0.34-5.60 77 Comp Metabolic Panel 12/25/2012 [facility] Sodium 141 mmol/L 133-[address] [place] [address] [phone] Potassium 4.6 mmol/L 3.5-5.0 Chloride 103 mmol/L 101-111 Co2 Carbon Dioxide 31.0 mmol/L 22-32 Anion Gap 7.0 mmol/L 2-11 Glucose 102 mg/dL High 70-100 Blood Urea Nitrogen 20 mg/dL 6-24 Creatinine 1.20 mg/dL 0.50-1.40 BUN/Creatinine Ratio 16.7 8-20 Calcium 8.4 mg/dL 8.1-9.9 Total Protein 6.9 g/dL 6.2-8.1 Albumin 4.1 g/dL 3.2-5.2 Globulin 2.8 g/dL 2-4 Albumin/Globulin Ratio 1.5 1-3 Total Bilirubin 0.6 mg/dL 0.4-1.5 Alkaline Phosphatase 59 U/L 30-110 Alt 24 U/L 14-54 Ast 22 U/L 12-42 Egfr Non- 60.6 >60 Egfr 77.9 >60 78 Lipid Profile 12/25/2012 [facility] Triglycerides 45 mg/dL 40 -200 (Trig/Chol/HDL) [address] [place] [address] [phone] Cholesterol 191 mg/dL Less than 200 HDL Cholesterol 68 mg/dL High 40-60 79 Cholesterol/HDL Ratio 2.8 Average 1-4.44 LDL Cholesterol 114.0 High Less Than 100 80 Laboratory test 12/25/2012 [facility] Hemoglobin A1c 6.4 % High Less than [address] 6.0 [place] [address] [phone] Laboratory test 09/22/2012 [facility] PSA Diagnostic 2.12 0- 4.0 [address] ng/mL [place], [place] [address] [phone] Clotest 08/03/2012 [facility] Clotest (SEE [address] NOTE) [place] [address] [phone] Surgical 08/03/2012 [facility] S RUN [address] DATE: [place] [address] 08/09/ [phone] <SEE NOTE> Laboratory test 07/18/2012 [facility] PSA Diagnostic 12.10 High 0-4.0 [address] ng/[place] [address] [phone] Basic Metabolic 07/11/2012 [facility] Sodium 140 133-[address] mmol/[place] [address] [phone] Potassium 3.6 mmol/L 3.5-5.0 Chloride 101 mmol/L 101-111 Co2 Carbon Dioxide 30.0 mmol/L 22-32 Anion Gap 9.0 mmol/L 2-11 Glucose 101 mg/dL High 70-100 Blood Urea Nitrogen 22 mg/dL 6-24 Creatinine 1.00 mg/dL 0.50-1.40 BUN/Creatinine Ratio 22.0 High 8-20 Calcium 8.0 mg/dL Low 8.1-9.9 Egfr Non- 74.8 >60 Egfr 96.1 >60 86 CBC Auto Diff 07/11/2012 [facility] White Blood 7.9 10^3/uL 4.8-10.[address] [place] [address] [phone] Red Blood Count 4.66 10^6/uL 4.0-5.4 Hemoglobin 15.0 g/dL 14.0-18.0 Hematocrit 44 % 42-52 Mean Corpuscular Volume 95 fL High 80-94 Mean Corpuscular Hemoglobin 32 pg High 27-31 Mean Corpuscular HGB Conc 34 g/dL 31-36 Red Cell Distribution Width 16 % High 10.5-15 Platelet Count 260 10^3/uL 150-450 Mean Platelet Volume 9 um3 7.4-10.4 Abs Neutrophils 4.4 10^3/uL 1.5-7.7 Abs Lymphocytes 2.7 10^3/uL 1.0-4.8 Abs Monocytes 0.6 10^3/uL 0-0.8 Abs Eosinophils 0.2 10^3/uL 0-0.6 Abs Basophils 0.1 10^3/uL 0-0.2 Abs Nucleated RBC 0.01 10^3/uL Granulocyte % 55.2 % 38-83 Lymphocyte % 33.8 % 25-47 Monocyte % 7.6 % 1-9 Eosinophil % 2.7 % 0-6 Basophil % 0.7 % 0-2 Nucleated Red Blood Cells % 0.1 Vitamin D, 25 02/09/2012 [facility] 25-Hydroxy Vitamin 75 ng/mL Hydroxy [address] D2 [place] [address] [phone] 25-Hydroxy Vitamin D3 3.3 ng/mL 25-Hydroxy Vitamin D Total 78 ng/mL 87 Basic Metabolic Panel 02/09/2012 [facility] Sodium 137 mmol/L 133-[address] [place] [address] [phone] Potassium 4.0 mmol/L 3.5-5.0 Chloride 100 mmol/L Low 101-111 Co2 Carbon Dioxide 30.0 mmol/L 22-32 Anion Gap 7.0 mmol/L 2-11 Glucose 106 mg/dL High 70-100 Blood Urea Nitrogen 19 mg/dL 6-24 Creatinine 1.00 mg/dL 0.50-1.40 BUN/Creatinine Ratio 19.0 8-20 Calcium 7.9 mg/dL Low 8.1-9.9 Egfr Non- 75.0 >60 Egfr 96.4 >60 88 Laboratory test 01/11/2012 [facility] Hemoglobin A1c 6.4 % High Less than [address] 6.0 [place] [address] [phone] Lipid Profile 01/11/2012 [facility] Triglycerides 111 40-200 (Trig/Chol/HDL) [address] mg/[place] [address] [phone] Cholesterol 206 mg/dL High Less than 200 90 HDL Cholesterol 66 mg/dL High 40-60 91 Cholesterol/HDL Ratio 3.1 AVERAGE 1-4.44 LDL Cholesterol 117.8 mg/dL High Less Than 100 Laboratory test 01/11/2012 [facility] TSH (Thyroid 1.54 0.34- 5.[address] Stimulating MIU/[place] [address] Horm) [phone] PSA Screening 2.8 NG/ML 0-4.0 92 Comp Metabolic Panel 01/11/2012 [facility] Sodium 138 mmol/L 133-[address] [place] [address] [phone] Potassium 3.9 mmol/L 3.5-5.0 Chloride 102 mmol/L 101-111 Co2 Carbon Dioxide 29.0 mmol/L 22-32 Anion Gap 7.0 mmol/L 2-11 Glucose 111 mg/dL High 70-100 Blood Urea Nitrogen 19 mg/dL 6-24 Creatinine 1.10 mg/dL 0.50-1.40 BUN/Creatinine Ratio 17.3 8-20 Calcium 7.8 mg/dL Low 8.1-9.9 Total Protein 6.8 GM/DL 6.2-8.1 Albumin 3.9 GM/DL 3.2-5.2 Globulin 2.9 GM/DL 2-4 Albumin/Globulin Ratio 1.3 1-3 Total Bilirubin 0.6 mg/dL 0.1-1.0 93 Alkaline Phosphatase 63 U/L 30-110 Alt 36 U/L 14-54 Ast 30 U/L 12-42 Egfr Non- 67.2 >60 Egfr 86.4 >60 94 CBC Auto Diff 01/11/2012 [facility] White Blood 7.0 10^3/uL 4.8-10.[address] [place] [address] [phone] Red Blood Count 4.60 10^6/uL 4.0-5.4 Hemoglobin 14.6 g/dL 14.0-18.0 Hematocrit 44 % 42-52 Mean Corpuscular Volume 95 fL High 80-94 Mean Corpuscular Hemoglobin 32 pg High 27-31 Mean Corpuscular HGB Conc 33 g/dL 31-36 Red Cell Distribution Width 16 % High 10.5-15 Platelet Count 257 10^3/uL 150-450 Mean Platelet Volume 9 um3 7.4-10.4 Abs Neutrophils 3.9 10^3/uL 1.5-7.7 Abs Lymphocytes 2.4 10^3/uL 1.0-4.8 Abs Monocytes 0.5 10^3/uL 0-0.8 Abs Eosinophils 0.2 10^3/uL 0-0.6 Abs Basophils 0.1 10^3/uL 0-0.2 Abs Nucleated RBC 0.01 10^3/uL Granulocyte % 55.1 % 38-83 Lymphocyte % 34.2 % 25-47 Monocyte % 7.6 % 1-9 Eosinophil % 2.2 % 0-6 Basophil % 0.9 % 0-2 Nucleated Red Blood Cells % 0.1 Surgical 08/30/2011 [facility] Surgical [address] Pathology <SEE NOTE> [place] [address] [phone] Laboratory 07/22/2011 [facility] Vitamin D, 54 pg/mL 18- 96, test finding [address] 1,25 64 97 [place] [address] Dihydroxy [phone] Vitamin D, 25 07/22/2011 [facility] 25-Hydroxy 81 ng/mL () Hydroxy [address] Vitamin D2 [place] [address] [phone] 25-Hydroxy Vitamin D3 6.3 ng/mL () 25-Hydroxy Vitamin D Total 87 ng/mL Abnormal () 98 Calcium 24HR Urine 07/22/2011 [facility] Calcium Random 5.0 mg/ dL [address] [place] [address] [phone] Urine Calcium/24HR 107.5 MG/24HR 50-400 Hours Of Collection 24 HR 24- Urine Volume Measurement 2150 ML Basic Metabolic Panel 07/22/2011 [facility] Sodium 138 mmol/L 135-[address] [place] [address] [phone] Potassium 4.0 mmol/L 3.5-5.0 Chloride 102 mmol/L 101-111 Co2 (Carbon Dioxide) 30.0 mmol/L 22-32 Anion Gap 6.0 mmol/L 2-11 99 Glucose 103 mg/dL High 70-100 BUN 23 mg/dL 6-24 Creatinine 1.1 mg/dL 0.50-1.40 One Over Creatinine 0.90 BUN/Creatinine Ratio 20.9 High 8-20 Calcium 7.6 mg/dL Low 8.1-9.9 eGFR Non- 67.2 > 60 eGFR 86.4 > 60 100 Vitamin D, 25 04/08/2011 [facility] 25-Hydroxy Vitamin 89 ng/mL () Hydroxy [address] D2 [place] [address] [phone] 25-Hydroxy Vitamin D3 3.9 ng/mL () 25-Hydroxy Vitamin D Total 93 ng/mL Abnormal () 101 Laboratory test 04/08/2011 [facility] TSH 0.62 MIU/ML 0.34- 5.60 finding 101 [place] [address] [phone] Basic Metabolic 04/08/2011 [facility] Sodium 142 mmol/L 135- 145 Panel [address] [place] [address] [phone] Potassium 4.5 mmol/L 3.5-5.0 Chloride 103 mmol/L 101-111 Co2 (Carbon Dioxide) 31.0 mmol/L 22-32 Anion Gap 8.0 mmol/L 2-11 102 Glucose 140 mg/dL High 70-100 BUN 20 mg/dL 6-24 Creatinine 1.1 mg/dL 0.50-1.40 One Over Creatinine 0.90 BUN/Creatinine Ratio 18.2 8-20 Calcium 8.4 mg/dL 8.1-9.9 eGFR Non- 67.2 > 60 eGFR 86.4 > 60 103 Laboratory test finding 04/08/2011 [facility] Alt (SGPT) 29 U/L 17-63 [address] [place] [address] [phone] Ast (Sgot) 23 U/L 12-42 Lipid Profile 04/08/2011 [facility] Triglyceride 97 mg/dL 40- 200 (Trig/Chol/HDL) [address] [place] [address] [phone] Cholesterol 212 mg/dL High Less Than 200 104 High Density Lipoprotein 66 mg/dL High 40-60 105 Cholesterol/HDL Ratio 3.21 AVERAGE 1-4.97 Low Density Lipoprotein 127 mg/dL High Less Than 100 106 Laboratory test 04/08/2011 [facility] Hemoglobin A1c 6.1 % High Less 107 finding [address] [facility] 6.[address] [place] [address] [phone] Vitamin D, 25 12/01/2010 [facility] 25-Hydroxy 94 ng/mL () Hydroxy [address] Vitamin D2 [place] [address] [phone] 25-Hydroxy Vitamin D3 5.3 ng/mL () 25-Hydroxy Vitamin D Total 99 ng/mL Abnormal () 108 Basic Metabolic Panel 12/01/2010 [facility] Sodium 138 mmol/L 135-[address] [place] [address] [phone] Potassium 3.9 mmol/L 3.5-5.0 Chloride 101 mmol/L 101-111 Co2 (Carbon Dioxide) 30.0 mmol/L 22-32 Anion Gap 7.0 mmol/L 2-11 109 Glucose 101 mg/dL High 70-100 BUN 18 mg/dL 6-24 Creatinine 1.1 mg/dL 0.50-1.40 One Over Creatinine 0.90 BUN/Creatinine Ratio 16.4 8-20 Calcium 8.2 mg/dL 8.1-9.9 eGFR Non- 67.4 > 60 eGFR 86.7 > 60 110 Laboratory test 12/01/2010 [facility] PSA Screening 2.83 NG/ML 0-[address] [place] [address] [phone] Lipid Profile 12/01/2010 [facility] Triglyceride 149 mg/dL 40 -200 (Trig/Chol/HDL) [address] [place] [address] [phone] Cholesterol 242 mg/dL High Less Than 200 112 High Density Lipoprotein 57 mg/dL 40-60 113 Cholesterol/HDL Ratio 4.25 AVERAGE 1-4.97 Low Density Lipoprotein 155 mg/dL High Less Than 100 114 Laboratory test 12/01/2010 [facility] Hemoglobin A1c 6.1 % High Less [address] Than 6.0 [place] [address] [phone] CMP Panel 08/31/2010 [facility] Sodium 140 135-[address] mmol/[place] [address] [phone] Potassium 4.0 mmol/L 3.5-5.0 Chloride 102 mmol/L 101-111 Co2 (Carbon Dioxide) 29.0 mmol/L 22-32 Anion Gap 9.0 mmol/L 2-11 116 Glucose 110 mg/dL High 70-100 BUN 23 mg/dL 6-24 Creatinine 1.00 mg/dL 0.50-1.40 One Over Creatinine 1.00 BUN/Creatinine Ratio 23.0 High 8-20 Calcium 8.4 mg/dL 8.1-9.9 Total Protein 7.0 GM/DL 6.2-8.1 Albumin 4.0 GM/DL 3.2-5.2 Globulin 3.0 GM/DL 2-4 Albumin/Globulin Ratio 1.3 1-3 Bilirubin Total 0.7 mg/dL 0.4-1.5 117 Alkaline Phosphatase 61 U/L 39-117 Alt (SGPT) 29 U/L 17-63 Ast (Sgot) 22 U/L 12-42 eGFR Non- 75.2 > 60 eGFR 96.7 > 60 118 CBC W/Electronic 08/31/2010 [facility] White Blood 8.2 CUMM 4.8-10.[address] [place] [address] [phone] Red Cell Count 4.27 CUMM Low 4.6-6.2 Hemoglobin 13.8 g/dL Low 14.0-18.0 Hematocrit 42 % 42-52 Mean Corpuscular Volume 97 um3 High 80-94 Mean Corpuscular Hemoglob 32 pg High 27-31 Mean Corpuscular HGB Cone 33 g/dL 32-36 Redcell Distribution WDTH 16 % High 10.5-15 Platelet Count 248 CUMM 150-450 Mean Platelet Volume 9.5 um3 7.4-10.4 Gran % 62.3 % 38-83 Lymph % 29.9 % 25-47 Mononuclear % 5.3 % 1-9 Eosinophil % 1.7 % 0-6 Basophil % 0.8 % 0-2 Abs Lymphs 2.5 1.0-4.8 Abs Mononuclear 0.4 0-0.8 Absolute Neutrophil Count 5.1 1.5-7.7 Abs Eosinophils 0.1 0-0.6 Abs Basophils 0.1 0-0.2 Basic Metabolic Panel 07/07/2010 [facility] Sodium 138 mmol/L 135-[address] [place] [address] [phone] Potassium 4.1 mmol/L 3.5-5.0 Chloride 103 mmol/L 101-111 Co2 (Carbon Dioxide) 27.0 mmol/L 22-32 Anion Gap 8.0 mmol/L 2-11 119 Glucose 153 mg/dL High 70-100 BUN 25 mg/dL High 6-24 Creatinine 1.20 mg/dL 0.50-1.40 One Over Creatinine 0.80 BUN/Creatinine Ratio 20.8 High 8-20 Calcium 8.3 mg/dL 8.1-9.9 eGFR Non- 61.0 > 60 eGFR 78.4 > 60 120 Vitamin D, 25 07/07/2010 [facility] 25-Hydroxy Vitamin 96 ng/mL () Hydroxy [address] [place] [address] [phone] 25-Hydroxy Vitamin D3 4.8 ng/mL () 25-Hydroxy Vitamin D Total 101 ng/mL Abnormal () 121 Laboratory test 07/07/2010 [facility] Alkaline 12 g/L 0-20 122 finding 101 [facility] [place] [address] Iso [phone] N-Telopeptide 07/07/2010 [facility] Creatinine Urine 255 mg/dL () Urine [address] [place] [address] [phone] NTX 495 nmol/L () NTX-Telopeptide, Ur 22 21-66 123 Laboratory test 07/07/2010 [facility] Osteocalcin 16 ng/mL 9- 42 [address] [address] [phone] Laboratory test 05/29/2010 [facility] Stone Analysis (SEE NOTE) [address] [place] [address] [phone] CBC Auto Diff 05/22/2010 [facility] White Blood 6.6 CUMM 4.8- 10.[address] [place] [address] [phone] Red Cell Count 4.44 CUMM Low 4.6-6.2 Hemoglobin 14.6 g/dL 14.0-18.0 Hematocrit 42 % 42-52 Mean Corpuscular Volume 94 um3 80-94 Mean Corpuscular Hemoglob 33 pg High 27-31 Mean Corpuscular HGB Cone 35 g/dL 32-36 Redcell Distribution WDTH 16 % High 10.5-15 Platelet Count 241 CUMM 150-450 Mean Platelet Volume 9.3 um3 7.4-10.4 Gran % 61.2 % 38-83 Lymph % 28.5 % 25-47 Mononuclear % 7.8 % 1-9 Eosinophil % 1.5 % 0-6 Basophil % 1.0 % 0-2 Abs Lymphs 1.9 1.0-4.8 Abs Mononuclear 0.5 0-0.8 Absolute Neutrophil Count 4.0 1.5-7.7 Abs Eosinophils 0.1 0-0.6 Abs Basophils 0.1 0-0.2 Basic Metabolic Panel 05/22/2010 [facility] Sodium 141 mmol/L 135-[address] [place] [address] [phone] Potassium 4.2 mmol/L 3.5-5.0 Chloride 102 mmol/L 101-111 Co2 (Carbon Dioxide) 30.0 mmol/L 22-32 Anion Gap 9.0 mmol/L 2-11 126 Glucose 107 mg/dL 70-100 BUN 23 mg/dL 6-24 Creatinine 1.20 mg/dL 0.50-1.40 One Over Creatinine 0.80 BUN/Creatinine Ratio 19.2 8-20 Calcium 8.7 mg/dL 8.1-9.9 eGFR Non- 61.0 > 60 eGFR 78.4 > 60 127 Laboratory test 05/22/2010 [facility] Hemoglobin A1c 5.8 % Less Than [address] [place] [address] [phone] Comp Metabolic 03/14/2010 [facility] Sodium 140 135-[address] mmol/[place] [address] [phone] Potassium 4.2 mmol/L 3.5-5.0 Chloride 102 mmol/L 101-111 Co2 (Carbon Dioxide) 31.0 mmol/L 22-32 Anion Gap 7.0 mmol/L 2-11 129 Glucose 109 mg/dL High 70-100 BUN 23 mg/dL 6-24 Creatinine 1.10 mg/dL 0.50-1.40 One Over Creatinine 0.90 BUN/Creatinine Ratio 20.9 High 8-20 Calcium 8.7 mg/dL 8.1-9.9 Total Protein 6.4 GM/DL 6.2-8.1 Albumin 3.8 GM/DL 3.2-5.2 Globulin 2.6 GM/DL 2-4 Albumin/Globulin Ratio 1.5 1-3 Bilirubin Total 0.5 mg/dL 0.4-1.5 130 Alkaline Phosphatase 63 U/L 39-117 Alt (SGPT) 27 U/L 17-63 Ast (Sgot) 24 U/L 12-42 eGFR Non- 71.6 > 60 eGFR 86.7 > 60 131 Protime 03/14/2010 [facility] Inr 0.94 0.82-1.[address] [place] [address] [phone] Protime 11.0 SEC 10.2-14.8 133 Manual Differential 03/14/2010 [facility] Polysegmented 66 % 38-[address] [place] [address] [phone] Lymphocyte 24 % Low 25-47 Monocyte 7 % 0-13 Eosinophil 1 % 0-6 Basophil 2 % 0-2 Absolute Neutrophil Count 5.7 Anisocytosis SLIGHT Macrocytosis SLIGHT CBC With 03/14/2010 [facility] White Blood 8.7 CUMM 4.8-10.[address] [place] [address] [phone] Red Cell Count 4.17 CUMM Low 4.6-6.2 Hemoglobin 13.9 g/dL Low 14.0-18.0 Hematocrit 40 % Low 42-52 Mean Corpuscular Volume 95 um3 High 80-94 Mean Corpuscular Hemoglob 33 pg High 27-31 Mean Corpuscular HGB Cone 35 g/dL 32-36 Redcell Distribution WDTH 16 % High 10.5-15 Platelet Count 242 CUMM 150-450 Mean Platelet Volume 8.6 um3 7.4-10.4 134 Laboratory test 03/14/2010 [facility] PTT (Aptt) 32.3 25.15- 38.[address] [place] [address] [phone] Cytology 02/26/2010 [facility] Cytology Non --------- [address] [employer] [address] [place] [address] <SEE [phone] NOTE> Basic Metabolic 01/29/2010 [facility] Sodium 139 135-[address] mmol/[place] [address] [phone] Potassium 4.5 mmol/L 3.5-5.0 Chloride 103 mmol/L 101-111 Co2 (Carbon Dioxide) 30.0 mmol/L 22-32 Anion Gap 6.0 mmol/L 2-11 136 Glucose 110 mg/dL High 70-100 137 BUN 32 mg/dL High 6-24 Creatinine 1.14 mg/dL 0.50-1.40 One Over Creatinine 0.80 BUN/Creatinine Ratio 28.1 High 8-20 Calcium 9.3 mg/dL 8.1-9.9 eGFR Non- 69.0 > 60 eGFR 83.4 > 60 138 Laboratory test 01/13/2010 [facility] TSH 0.86 MIU/ML 0.34- 5.[address] [place] [address] [phone] Basic Metabolic 01/13/2010 [facility] Sodium 140 mmol/L 135- [address] [place] [address] [phone] Potassium 4.7 mmol/L 3.5-5.0 Chloride 100 mmol/L Low 101-111 Co2 (Carbon Dioxide) 32.0 mmol/L 22-32 Anion Gap 8.0 mmol/L 2-11 139 Glucose 91 mg/dL 70-100 140 BUN 20 mg/dL 6-24 Creatinine 1.30 mg/dL 0.50-1.40 One Over Creatinine 0.70 BUN/Creatinine Ratio 15.4 8-20 Calcium 9.1 mg/dL 8.1-9.9 eGFR Non- 59.3 > 60 eGFR 71.7 > 60 141 Laboratory test 11/27/2009 [facility] PSA,Diagnostic 1.98 0- [address] NG/[place] [address] [phone] Laboratory test 10/15/2009 [facility] Hemoglobin A1c 6.1 % High Less [address] 6[address]0 [place] [address] [phone] Lipid Profile 10/15/2009 [facility] Triglyceride 81 mg/dL 40- 200 (Trig/Chol/HDL) [address] [place] [address] [phone] Cholesterol 242 mg/dL High Less Than 200 144 High Density Lipoprotein 73 mg/dL High 40-60 145 Cholesterol/HDL Ratio 3.32 AVERAGE 1-4.97 Low Density Lipoprotein 153 mg/dL High Less Than 100 146 Comp Metabolic Panel 10/15/2009 [facility] Sodium 140 mmol/L 135-145 [address] [place] [address] [phone] Potassium 4.5 mmol/L 3.5-5.0 Chloride 103 mmol/L 101-111 Co2 (Carbon Dioxide) 30.0 mmol/L 22-32 Anion Gap 7.0 mmol/L 2-11 147 Glucose 99 mg/dL 70-100 148 BUN 18 mg/dL 6-24 Creatinine 1.30 mg/dL 0.50-1.40 One Over Creatinine 0.70 BUN/Creatinine Ratio 13.8 8-20 Calcium 8.5 mg/dL 8.1-9.9 149 Total Protein 7.5 GM/DL 6.2-8.1 Albumin 4.3 GM/DL 3.2-5.2 Globulin 3.2 GM/DL 2-4 Albumin/Globulin Ratio 1.3 1-3 Bilirubin Total 0.6 mg/dL 0.4-1.5 150 Alkaline Phosphatase 40 U/L 39-117 Alt (SGPT) 25 U/L 17-63 Ast (Sgot) 37 U/L 12-42 eGFR Non- 59.3 > 60 eGFR 71.7 > 60 151 Laboratory test 07/10/2009 [facility] TSH 1.09 MIU/ML 0.34- 5.60 finding [address] [place] [address] [phone] Basic Metabolic 07/10/2009 [facility] Sodium 140 mmol/L 135- 145 Panel [address] [place] [address] [phone] Potassium 4.2 mmol/L 3.5-5.0 Chloride 100 mmol/L Low 101-111 Co2 (Carbon Dioxide) 29.0 mmol/L 22-32 Anion Gap 11.0 mmol/L 2-11 152 Glucose 121 mg/dL High 70-100 153 BUN 23 mg/dL 6-24 Creatinine 1.20 mg/dL 0.50-1.40 One Over Creatinine 0.80 BUN/Creatinine Ratio 19.2 8-20 Calcium 9.1 mg/dL 8.1-9.9 154 eGFR Non- 65.0 > 60 eGFR 78.6 > 60 155 1 Desirable: <150 Borderline High: 150-199 High: 200-499 Very High: >500 2 Desirable: <200 Borderline High: 200-239 High: >239 3 Low: <40 Desirable: 40-60 High: >60 4 Desirable: <100 Near Optimal: 100-129 Borderline High: 130-159 High: 160-189 Very High: >189 5 Therapeutic target for the treatment of diabetes mellitus patients is <7% HBA1C, and in selective patients <6.0%. Please refer to [place] [employer] diabetic care guidelines for further information. 6 FASTING 10 HOUR 7 FASTING 10 HOUR 8 Serum levels of PSA measured using the [employer] DXI Hybritech immunoassay should not be interpreted as absolute evidence of the presence or absence of disease. The PSA value should be used in conjunction with other pertinent clinical diagnostic procedures. The values obtained with different assay methods or kits cannot be used interchangeably. 9 Because ethnic data is not always readily available, this report includes an eGFR for both -Americans and non- Americans. The National Kidney Disease Education Program (NKDEP) does not endorse the use of the MDRD equation for patients that are not between the ages of 18 and 70, are , have extremes of body size, muscle mass, or nutritional status, or are non- or non-. According to the National Kidney Foundation, irrespective of diagnosis, the stage of the disease is based on the level of kidney function: Stage Description GFR(mL/min/1.73 m(2)) 1 Kidney damage with normal or decreased GFR 90 2 Kidney damage with mild decrease in GFR 60-89 3 Moderate decrease in GFR 30-59 4 Severe decrease in GFR 15-29 5 Kidney failure <15 (or dialysis) 10 Serum levels of PSA measured using the [employer] DXI Hybritech immunoassay should not be interpreted as absolute evidence of the presence or absence of disease. The PSA value should be used in conjunction with other pertinent clinical diagnostic procedures. The values obtained with different assay methods or kits cannot be used interchangeably. 11 Desirable: <150 Borderline High: 150-199 High: 200-499 Very High: >500 12 Desirable: <200 Borderline High: 200-239 High: >239 13 Low: <40 Desirable: 40-60 High: >60 14 Desirable: <100 Near Optimal: 100-129 Borderline High: 130-159 High: 160-189 Very High: >189 15 Therapeutic target for the treatment of diabetes mellitus patients is <7% HBA1C, and in selective patients <6.0%. Please refer to [place] [employer] diabetic care guidelines for further information. 16 Because ethnic data is not always readily available, this report includes an eGFR for both -Americans and non- Americans. The National Kidney Disease Education Program (NKDEP) does not endorse the use of the MDRD equation for patients that are not between the ages of 18 and 70, are , have extremes of body size, muscle mass, or nutritional status, or are non- or non-. According to the National Kidney Foundation, irrespective of diagnosis, the stage of the disease is based on the level of kidney function: Stage Description GFR(mL/min/1.73 m(2)) 1 Kidney damage with normal or decreased GFR 90 2 Kidney damage with mild decrease in GFR 60-89 3 Moderate decrease in GFR 30-59 4 Severe decrease in GFR 15-29 5 Kidney failure <15 (or dialysis) 17 Serum levels of PSA measured using the [employer] DXI Hybritech immunoassay should not be interpreted as absolute evidence of the presence or absence of disease. The PSA value should be used in conjunction with other pertinent clinical diagnostic procedures. The values obtained with different assay methods or kits cannot be used interchangeably. 18 Because ethnic data is not always readily available, this report includes an eGFR for both -Americans and non- Americans. The National Kidney Disease Education Program (NKDEP) does not endorse the use of the MDRD equation for patients that are not between the ages of 18 and 70, are , have extremes of body size, muscle mass, or nutritional status, or are non- or non-. According to the National Kidney Foundation, irrespective of diagnosis, the stage of the disease is based on the level of kidney function: Stage Description GFR(mL/min/1.73 m(2)) 1 Kidney damage with normal or decreased GFR 90 2 Kidney damage with mild decrease in GFR 60-89 3 Moderate decrease in GFR 30-59 4 Severe decrease in GFR 15-29 5 Kidney failure <15 (or dialysis) 19 Desirable <150 Borderline high 150-199 High 200-499 Very High >500 20 Desirable <200 Borderline high 200-239 High >239 21 Low <40 Desirable: 40-60 High: >60 22 Desirable: <100 mg/dL Near Optimal: 100-129 mg/dL Borderline High: 130-159 mg/dL High: 160-189 mg/dL Very High: >189 mg/dL 23 Because ethnic data is not always readily available, this report includes an eGFR for both -Americans and non- Americans. The National Kidney Disease Education Program (NKDEP) does not endorse the use of the MDRD equation for patients that are not between the ages of 18 and 70, are , have extremes of body size, muscle mass, or nutritional status, or are non- or non-. According to the National Kidney Foundation, irrespective of diagnosis, the stage of the disease is based on the level of kidney function: Stage Description GFR(mL/min/1.73 m(2)) 1 Kidney damage with normal or decreased GFR 90 2 Kidney damage with mild decrease in GFR 60-89 3 Moderate decrease in GFR 30-59 4 Severe decrease in GFR 15-29 5 Kidney failure <15 (or dialysis) 24 Therapeutic target for the treatment of diabetes Mellitus patients is <7% HBA1C, and in selective patients <6.0%.Please refer to [place] [employer] Diabetic care guidelines for further information. 25 FASTING 10 HOUR Copy Result to: DAMARIS KAY ([id number]) 26 Serum levels of PSA measured using the [employer] DXI Hybritech immunoassay should not be interpreted as absolute evidence of the presence or absence of disease. The PSA value should be used in conjunction with other pertinent clinical diagnostic procedures. The values obtained with different assay methods or kits cannot be used interchangeably. 27 Because ethnic data is not always readily available, this report includes an eGFR for both -Americans and non- Americans. The National Kidney Disease Education Program (NKDEP) does not endorse the use of the MDRD equation for patients that are not between the ages of 18 and 70, are , have extremes of body size, muscle mass, or nutritional status, or are non- or non-. According to the National Kidney Foundation, irrespective of diagnosis, the stage of the disease is based on the level of kidney function: Stage Description GFR(mL/min/1.73 m(2)) 1 Kidney damage with normal or decreased GFR 90 2 Kidney damage with mild decrease in GFR 60-89 3 Moderate decrease in GFR 30-59 4 Severe decrease in GFR 15-29 5 Kidney failure <15 (or dialysis) 28 Because ethnic data is not always readily available, this report includes an eGFR for both -Americans and non- Americans. The National Kidney Disease Education Program (NKDEP) does not endorse the use of the MDRD equation for patients that are not between the ages of 18 and 70, are , have extremes of body size, muscle mass, or nutritional status, or are non- or non-. According to the National Kidney Foundation, irrespective of diagnosis, the stage of the disease is based on the level of kidney function: Stage Description GFR(mL/min/1.73 m(2)) 1 Kidney damage with normal or decreased GFR 90 2 Kidney damage with mild decrease in GFR 60-89 3 Moderate decrease in GFR 30-59 4 Severe decrease in GFR 15-29 5 Kidney failure <15 (or dialysis) 29 SEE RESULT BELOW Name: KEITH OSEGUERA : [address]: Monica Carroll NP Acct: [id number] Unit: [id number] AGE: 70 Location: [facility] Re06/11/15 SEX: M Status: REG REF SPEC: [id number] JANIA: 06/11/15-[address]: Monica Carroll NP REQ: [id number] RECD: 06/11/15 STATUS: COMP _ SOURCE: [facility]: ORDERED: Flu A B Request Procedure Result Reported Site Rapid Influenza A B Request Final 06/11/15- 1920 ML Specimen received for Influenza A/B Molecular testing * ML - [facility] . END OF REPORT * ML=Testing performed at Main Lab DEPARTMENT OF PATHOLOGY, [address] [place] [address] Ronald Pappas M.D. Director [facility] # [id number] Dictionary Editor: AGGIE ALVAREZ 31 PT IS FASTING 32 Desirable <150 Borderline high 150-199 High 200-499 Very High >500 33 Desirable <200 Borderline high 200-239 High >239 34 Low <40 Desirable: 40-60 High: >60 35 Desirable: <100 mg/dL Near Optimal: 100-129 mg/dL Borderline High: 130-159 mg/dL High: 160-189 mg/dL Very High: >189 mg/dL 36 Because ethnic data is not always readily available, this report includes an eGFR for both -Americans and non- Americans. The National Kidney Disease Education Program (NKDEP) does not endorse the use of the MDRD equation for patients that are not between the ages of 18 and 70, are , have extremes of body size, muscle mass, or nutritional status, or are non- or non-. According to the National Kidney Foundation, irrespective of diagnosis, the stage of the disease is based on the level of kidney function: Stage Description GFR(mL/min/1.73 m(2)) 1 Kidney damage with normal or decreased GFR 90 2 Kidney damage with mild decrease in GFR 60-89 3 Moderate decrease in GFR 30-59 4 Severe decrease in GFR 15-29 5 Kidney failure <15 (or dialysis) 37 Therapeutic target for the treatment of diabetes Mellitus patients is <7% HBA1C, and in selective patients <6.0%.Please refer to [place] [employer] Diabetic care guidelines for further information. 38 PT IS FASTING 39 REFERENCE VALUE 25-300* *Values are for persons with average calcium intake--i.e. 600-800 mg/day 40 Test Performed by: [place] [address] Ornamental Iron Worker: Fred Hudson II, M.D., Ph.D. 41 Serum levels of PSA measured using the [employer] DXI Hybritech immunoassay should not be interpreted as absolute evidence of the presence or absence of disease. The PSA value should be used in conjunction with other pertinent clinical diagnostic procedures. The values obtained with different assay methods or kits cannot be used interchangeably. 42 Because ethnic data is not always readily available, this report includes an eGFR for both -Americans and non- Americans. The National Kidney Disease Education Program (NKDEP) does not endorse the use of the MDRD equation for patients that are not between the ages of 18 and 70, are , have extremes of body size, muscle mass, or nutritional status, or are non- or non-. According to the National Kidney Foundation, irrespective of diagnosis, the stage of the disease is based on the level of kidney function: Stage Description GFR(mL/min/1.73 m(2)) 1 Kidney damage with normal or decreased GFR 90 2 Kidney damage with mild decrease in GFR 60-89 3 Moderate decrease in GFR 30-59 4 Severe decrease in GFR 15-29 5 Kidney failure <15 (or dialysis) 43 Interpretation: 51-80 ng/mL (increased risk of hypercalciuria) REFERENCE VALUE 25-HYDROXY D TOTAL (D2+D3) Optimum levels in the healthy population are 20-50, patients with bone disease may benefit from higher levels within this range. Test Performed by: [place] [address] Ornamental Iron Worker: Derick Cruz M.D. 44 Desirable <150 Borderline high 150-199 High 200-499 Very High >500 45 Desirable <200 Borderline high 200-239 High >239 46 Low <40 Desirable: 40-60 High: >60 47 Desirable <100 Near Optimal 100-129 Borderline high 130-159 High 160-189 Very High >189 48 Because ethnic data is not always readily available, this report includes an eGFR for both -Americans and non- Americans. The National Kidney Disease Education Program (NKDEP) does not endorse the use of the MDRD equation for patients that are not between the ages of 18 and 70, are , have extremes of body size, muscle mass, or nutritional status, or are non- or non-. According to the National Kidney Foundation, irrespective of diagnosis, the stage of the disease is based on the level of kidney function: Stage Description GFR(mL/min/1.73 m(2)) 1 Kidney damage with normal or decreased GFR 90 2 Kidney damage with mild decrease in GFR 60-89 3 Moderate decrease in GFR 30-59 4 Severe decrease in GFR 15-29 5 Kidney failure <15 (or dialysis) 49 Interpretation: 51-80 ng/mL (increased risk of hypercalciuria) REFERENCE VALUE 25-HYDROXY D TOTAL (D2+D3) Optimum levels in the healthy population are 20-50, patients with bone disease may benefit from higher levels within this range. Test Performed by: [place] [address] Ornamental Iron Worker: Derick Cruz M.D. 50 Because ethnic data is not always readily available, this report includes an eGFR for both -Americans and non- Americans. The National Kidney Disease Education Program (NKDEP) does not endorse the use of the MDRD equation for patients that are not between the ages of 18 and 70, are , have extremes of body size, muscle mass, or nutritional status, or are non- or non-. According to the National Kidney Foundation, irrespective of diagnosis, the stage of the disease is based on the level of kidney function: Stage Description GFR(mL/min/1.73 m(2)) 1 Kidney damage with normal or decreased GFR 90 2 Kidney damage with mild decrease in GFR 60-89 3 Moderate decrease in GFR 30-59 4 Severe decrease in GFR 15-29 5 Kidney failure <15 (or dialysis) 51 RUN DATE: 11/02/13 [facility] LAB LIVE PAGE 1 RUN TIME: [address] [place] [id number] Specimen Inquiry Name: KEITH OSEGUERA : [address]: Yash Weinstein MD Acct: [id number] Unit: [id number] AGE: 68 Location: ENDO Re10/31/13 SEX: M Status: REG REF SPEC: [id number] JANIA: 10/31/13-[address]: Yash Weinstein MD REQ: [id number] RECD: 10/31/13 STATUS: ASAD TORREZ DR: Jeniffer Monzon MD _ ORDERED: LEVEL IV/2 FINAL DIAGNOSIS 1. Colon, at 20 cm., biopsy: Hyperplastic polyp. 2. Colon, sigmoid, biopsy: A. Tubular adenoma. B. No high grade dysplasia or malignancy. CLINICAL HISTORY Screening flexible sigmoidoscopy with diarrhea POST-OPERATIVE DIAGNOSIS Screening flexible sigmoidoscopy to 40 cm., prep good - some soft stool throughout. Small polyp removed, random biopsies obtained GROSS DESCRIPTION 1. The specimen is received in formalin labeled Keith Oseguera, Biopsy Colon Polyp at 20 cm., and consists of a 0.3 x 0.2 x 0.2 cm. erazo-jacques, polypoid soft tissue fragment. Submitted entirely, one cassette. 2. The specimen is received in formalin labeled Keith Oseguera, Biopsy Sigmoid Colon, and consists of two erazo-jacques polypoid soft tissue fragments averaging 0.2 x 0.2 x 0.2 cm. Submitted entirely, one cassette. 1. Signed (signature on file) Nikkie Mott MD 1357 END OF REPORT * ML=Testing performed at Main Lab DEPARTMENT OF PATHOLOGY, [facility] [address] [place], [place] [address] Ronald Pappas M.D. Director [facility] # [id number] RUN DATE: 11/02/13 [facility] LAB LIVE PAGE 1 RUN TIME: 1418 [facility] [employer] [place], [place] [address] Specimen Inquiry Name: KEIHT OSEGUERA : [address]: Yash Weinstein MD Acct: [id number] Unit: [id number] AGE: 68 Location: ENDO Re10/31/13 SEX: M Status: REG REF SPEC: [id number] JANIA: 10/31/13-[address] [facility] [address]: Yash Weinstein MD REQ: [id number] RECD: 10/31/13 STATUS: SALVADOR TORREZ DR: Jeniffer Deleon MD _ SOURCE: STOOL SPDESC: ORDERED: Stool Culture, O P: Giar/Crypt Procedure Result Verified Site Stool Culture Final 11/02/13- 1418 ML Result No enteric pathogens isolated Testing for Salmonella, Shigella, Aeromonas, Plesiomonas, Yersinia and Campylobacter are included in a Stool Culture. Vibrio spp not routinely tested for in a stool culture. If testing is desired, please request specifically when placing test order. Sensitivities not routinely performed on stool isolates, as antibiotics may prolong the carriage rate of bacteria. Please contact the microbiology lab if sensitivities are required. Stool Specimen Description Final 10/31/13- 1926 ML Stool Color Dark Brown Stool Form Nonformed Stool Consistency Pasty Shiga Toxin 1 2 Final 11/02/13- 1358 ML Organism 1 Negative Shiga Toxin 1 2 Immunochromatographic Assay CONTINUED ON NEXT PAGE * ML=Testing performed at Main Lab DEPARTMENT OF PATHOLOGY, [facility] [address] [place], [place] [address] Ronald Pappas M.D. Director [facility] # [id number] RUN DATE: 11/02/13 [facility] LAB LIVE PAGE 2 RUN TIME: 4800 [facility] [employer] [place], [place] [address] Specimen Inquiry Patient: OUMAR,KEITH Z [id number] (Continued) Specimen: [id number] Collected: 10/31/13160 Received: 10/31/13 (Continued) Procedure Result Verified Site Shiga Toxin 1 2 Final (continued) 11/02/13- 1358 O P: Giardia/Cryptospor Screen Final 11/02/13- 08 ML Organism 1 Neg Cryptosporidium/Giardia Giardia and cryptosporidium antigen testing performed by enzyme immunoassay. If patient is immunocompromised or has traveled to or is from a developing country, a full ova and parasite exam with microscopic (OPMIC) is recommended. All samples will be held one month in case full ova and parasite testing is requested. Contact the Microbiology Department at [phone]. TEST LIMITATIONS: As with all diagnostic procedures, the results obtained should be used in conjunction with other clinical information available the physician. Negative results can occur in samples containing antigen below lower limits of detection of the assay. The use of colonic washes, aspirates or other diluted sample types has not been established and could affect the performance of the assay. Stool samples contaminated with an oily or particulate base (eg. Barium, mineral oil etc.) could interfere with the test and are not recommended. END OF REPORT * ML=Testing performed at Main Lab DEPARTMENT OF PATHOLOGY, [facility] [address] [place], [place] [address] Ronald Pappas M.D. Director CLIA # [id number] RUN DATE: 11/01/13 [facility] LAB LIVE PAGE 1 RUN TIME: 1341 [facility] [employer] [place], [place] [address] Specimen Inquiry Name: KEITH OSEGUERA : [address]: Yash Weinstein MD Acct: [id number] Unit: [id number] AGE: 68 Location: ENDO Re10/31/13 SEX: M Status: REG REF SPEC: [id number] JANIA: 10/31/13-160 [facility] [address]: Yash Weinstein MD REQ: [id number] RECD: 10/31/13 STATUS: SALVADOR TORREZ DR: Jeniffer Deleon MD _ SOURCE: STOOL SPDESC: ORDERED: Fecal Lactoferr Procedure Result Verified Site Stool Specimen Description Final 11/01/13- 0912 ML Stool Color Dark Brown Stool Form Nonformed Stool Consistency Liquid with Solid pieces Fecal Lactoferrin (Stool WBC) Final 11/01/13- 1341 ML Fecal Lactoferrin Negative by Immunoassay TEST LIMITATIONS: Assay detects elevated levels of lactoferrin released from fecal leukocytes as a marker of intestinal inflammation. The test may not be appropriate in immunocompromised persons. Fecal samples from breast fed infants should not be used with this assay. END OF REPORT * ML=Testing performed at Main Lab DEPARTMENT OF PATHOLOGY, [address] [place] [address] Ronald Pappas M.D. Director [facility] # [id number] RUN DATE: 11/02/13 [facility] LAB LIVE PAGE 1 RUN TIME: [address] [place] [address] Specimen Inquiry Name: KEITH OSEGUERA Kane : [address]: Yash Weinstein MD Acct: [id number] Unit: [id number] AGE: 68 Location: ENDO Re10/31/13 SEX: M Status: REG REF SPEC: [id number] JANIA: 10/31/13-[address] [facility] [address]: Yash Weinstein MD REQ: [id number] RECD: 10/31/13 STATUS: LINDA TORREZ DR: Jeniffer Deleon MD _ SOURCE: STOOL SPDESC: ORDERED: Stool Culture, O P: Giar/Crypt Procedure Result Verified Site Stool Culture PENDING Stool Specimen Description Final 10/31/13- 1926 ML Stool Color Dark Brown Stool Form Nonformed Stool Consistency Pasty Shiga Toxin 1 2 PENDING O P: Giardia/Cryptospor Screen Final 11/02/13- 0847 ML Organism 1 Neg Cryptosporidium/Giardia Giardia and cryptosporidium antigen testing performed by enzyme immunoassay. If patient is immunocompromised or has traveled to or is from a developing country, a full ova and parasite exam with microscopic (OPMIC) is recommended. All samples will be held one month in case full ova and parasite testing is requested. Contact the Microbiology Department at [phone]. TEST LIMITATIONS: As with all diagnostic procedures, the results obtained should be used in conjunction with other clinical information available the physician. Negative results can occur in samples containing antigen below lower limits of detection of the assay. The use of colonic washes, aspirates or other diluted sample types has not been established and could affect the performance of the assay. CONTINUED ON NEXT PAGE * ML=Testing performed at Main Lab DEPARTMENT OF PATHOLOGY, [facility] [employer] [place], [place] [address] Ronald Pappas M.D. Director [facility] # [id number] RUN DATE: 11/02/13 [facility] LAB LIVE PAGE 2 RUN TIME: 3167 [facility] [employer] [place], [place] [address] Specimen Inquiry Patient: OUMARKEITH [id number] (Continued) Specimen: [id number] Collected: 10/31/13-1603 Received: 10/31/13 (Continued) Procedure Result Verified Site O P: Giardia/Cryptospor Screen Final (continued) 11/02/13846 Stool samples contaminated with an oily or particulate base (eg. Barium, mineral oil etc.) could interfere with the test and are not recommended. END OF REPORT * ML=Testing performed at Main Lab DEPARTMENT OF PATHOLOGY, [address] [place] [address] Ronald Pappas M.D. Director [facility] # [id number] 55 Because ethnic data is not always readily available, this report includes an eGFR for both -Americans and non- Americans. The National Kidney Disease Education Program (NKDEP) does not endorse the use of the MDRD equation for patients that are not between the ages of 18 and 70, are , have extremes of body size, muscle mass, or nutritional status, or are non- or non-. According to the National Kidney Foundation, irrespective of diagnosis, the stage of the disease is based on the level of kidney function: Stage Description GFR(mL/min/1.73 m(2)) 1 Kidney damage with normal or decreased GFR 90 2 Kidney damage with mild decrease in GFR 60-89 3 Moderate decrease in GFR 30-59 4 Severe decrease in GFR 15-29 5 Kidney failure <15 (or dialysis) 56 Interpretation: >80 ng/mL (toxicity possible) -- REFERENCE VALUE -- 25-HYDROXY D TOTAL (D2+D3) Optimum levels in the healthy population are 20-50, patients with bone disease may benefit from higher levels within this range. Test Performed by: [place] [address] Ornamental Iron Worker: Kieran Martinez III, M.D. 57 Serum levels of PSA measured using the [employer] DXI Hybritech immunoassay should not be interpreted as absolute evidence of the presence or absence of disease. The PSA value should be used in conjunction with other pertinent clinical diagnostic procedures. The values obtained with different assay methods or kits cannot be used interchangeably. 58 -- REFERENCE VALUE -- <4.0 (Negative) Test Performed by: [place] [address] Ornamental Iron Worker: Kieran Martinez III, M.D. 59 Negative serology. Celiac disease unlikely. However, approximately 10% of patients with celiac disease are seronegative. Also, patients who are already adhering to a gluten-free diet may be seronegative. If celiac disease is highly clinically suspected, consider HLA-DQ typing. Test Performed by: [place] [address] Ornamental Iron Worker: Kieran Martinez III, M.D. 60 Negative results should not be used to rule out amebiasis. Repeat testing in 2-3 weeks if clinically indicated. Serologic results are an aid for diagnosis of amebiasis. Serologic results alone should not be considered as diagnostic for Entamoeba histolytica infection. Test Performed by: [address] [address] Ornamental Iron Worker: Kieran Martinez III, M.D. 61 LOOK FOR LISTERIA 62 RUN DATE: 10/04/13 [facility] LAB LIVE PAGE 1 RUN TIME: [address] [place] [address] Specimen Inquiry Name: KEITH OSEGUERA : [address]: Jeniffer Monzon MD Acct: [id number] Unit: [id number] AGE: 68 Location: [facility] Re10/02/13 SEX: M Status: REG REF SPEC: [id number] JANIA: 10/02/13-[address] [facility] [address]: Jeniffer Monzon MD REQ: [id number] RECD: 10/02/13 STATUS: COMP _ SOURCE: STOOL [facility]: ORDERED: Stool Culture COMMENTS: LOOK FOR LISTERIA "Listeria is not commonly isolated from stool specimens. Diagnosis of Listeria is confirmed only after isolation of Listeria monocytogenes from a normally sterile site, such as blood, or from amniotic fluid or the placenta in the setting of ." (Centers for Disease Control and Prevention) Procedure Result Verified Site Stool Culture Final 10/04/13- 0931 ML Result No enteric pathogens isolated Testing for Salmonella, Shigella, Aeromonas, Plesiomonas, Yersinia and Campylobacter are included in a Stool Culture. Vibrio spp not routinely tested for in a stool culture. If testing is desired, please request specifically when placing test order. Sensitivities not routinely performed on stool isolates, as antibiotics may prolong the carriage rate of bacteria. Please contact the microbiology lab if sensitivities are required. Stool Specimen Description Final 10/02/13- 1108 ML Stool Color Brown Stool Form Nonformed Stool Consistency Soft Shiga Toxin 1 2 Final 10/03/13- 1155 ML Organism 1 Negative Shiga Toxin 1 2 CONTINUED ON NEXT PAGE * ML=Testing performed at Main Lab DEPARTMENT OF PATHOLOGY, [facility] [employer] [place], [place] [address] Ronald Pappas M.D. Director [facility] # [id number] RUN DATE: 10/04/13 [facility] LAB LIVE PAGE 2 RUN TIME: 930 [facility] [employer] [place], [place] [address] Specimen Inquiry Patient: KEITH OSEGUERA [id number] (Continued) Specimen: [id number] Collected: 10/02/13 Received: 10/02/13 (Continued) Procedure Result Verified Site Shiga Toxin 1 2 Final (continued) 10/03/13- 6322 Immunochromatographic Assay END OF REPORT * ML=Testing performed at Main Lab DEPARTMENT OF PATHOLOGY, [address] [place] [address] Ronald Pappas M.D. Director [facility] # [id number] RUN DATE: 09/29/13 [facility] LAB LIVE PAGE 1 RUN TIME: [address] [place] [address] Specimen Inquiry Name: KEITH OSEGUERA : [address]: Jeniffer Monzon MD Acct: [id number] Unit: [id number] AGE: 68 Location: [facility] Re09/27/13 SEX: M Status: REG REF SPEC: [id number] JANIA: 09/27/13-[address] [facility] [address]: Jeniffer Monzon MD REQ: [id number] RECD: 09/27/13 STATUS: COMP _ SOURCE: STOOL SPDESC: ORDERED: Stool Culture, C. diff Amp DNA Procedure Result Verified Site Stool Culture Final 09/29/13- 1256 ML Result No enteric pathogens isolated Testing for Salmonella, Shigella, Aeromonas, Plesiomonas, Yersinia and Campylobacter are included in a Stool Culture. Vibrio spp not routinely tested for in a stool culture. If testing is desired, please request specifically when placing test order. Sensitivities not routinely performed on stool isolates, as antibiotics may prolong the carriage rate of bacteria. Please contact the microbiology lab if sensitivities are required. Stool Specimen Description Final 09/27/13- 1640 ML Stool Color Light Brown Stool Form Nonformed Stool Consistency Liquid Shiga Toxin 1 2 Final 09/28/13- 0915 ML Organism 1 Negative Shiga Toxin 1 2 Immunochromatographic Assay C. difficile Amplified DNA Final 09/28/13- 1419 ML Organism 1 Neg: No C. difficile detected CONTINUED ON NEXT PAGE * ML=Testing performed at Main Lab DEPARTMENT OF PATHOLOGY, [facility] [employer] [place] [address] Ronald Pappas M.D. Director [facility] # [id number] RUN DATE: 09/29/13 [facility] LAB LIVE PAGE 2 RUN TIME: 6 [facility] [employer] [place], [place] [address] Specimen Inquiry Patient: KEITH OSEGUERA [id number] (Continued) Specimen: [id number] Collected: 09/27/13 Received: 09/27/13-1137 (Continued) Procedure Result Verified Site C. difficile Amplified DNA Final (continued) 09/28/13- 141 Assay tests for toxigenic C. difficile with Pathogen Locus (PALOC) TEST LIMITATIONS: Assay does not distinguish between viable and nonviable organisms. Test results are to be used in conjunction with information available from the patient clinical evaluation and other diagnostic procedures. Two distinct groups have been identified that can harbor C. difficile asymptomatically at very high rates. Colonization at rates up to 50% and higher have been reported in infants and rates up to 32% in cystic fibrosis patients. END OF REPORT * ML=Testing performed at Main Lab DEPARTMENT OF PATHOLOGY, [address] [place] [address] Ronald Pappas M.D. Director [facility] # [id number] RUN DATE: 09/28/13 [facility] LAB LIVE PAGE 1 RUN TIME: 142 [address] [place], [place] [address] Specimen Inquiry Name: KEITH OSEGUERA : [address]: Jeniffer Monzon MD Acct: [id number] Unit: [id number] AGE: 68 Location: [facility] Re09/27/13 SEX: M Status: REG REF SPEC: [id number] JANIA: 09/27/13-[address] [facility] [address]: Jeniffer Monzon MD REQ: [id number] RECD: 09/27/13 STATUS: RES _ SOURCE: STOOL SPDESC: ORDERED: Stool Culture, C. diff Amp DNA Procedure Result Verified Site Stool Culture PENDING Stool Specimen Description Final 09/27/13- 1640 ML Stool Color Light Brown Stool Form Nonformed Stool Consistency Liquid Shiga Toxin 1 2 Final 09/28/13- 0915 ML Organism 1 Negative Shiga Toxin 1 2 Immunochromatographic Assay C. difficile Amplified DNA Final 09/28/13- 1419 ML Organism 1 Neg: No C. difficile detected Assay tests for toxigenic C. difficile with Pathogen Locus (PALOC) TEST LIMITATIONS: Assay does not distinguish between viable and nonviable organisms. Test results are to be used in conjunction with information available from the patient clinical evaluation and other diagnostic procedures. Two distinct groups have been identified that can harbor C. difficile asymptomatically at very high rates. Colonization at rates up to 50% and higher have been reported in infants and rates up to 32% in cystic fibrosis patients. END OF REPORT * ML=Testing performed at Main Lab DEPARTMENT OF PATHOLOGY, [address] [place] [address] Ronald Pappas M.D. Director [facility] # [id number] 65 Platelet count confirmed by smear estimate. 66 Few large platelets observed. 67 Because ethnic data is not always readily available, this report includes an eGFR for both -Americans and non- Americans. The National Kidney Disease Education Program (NKDEP) does not endorse the use of the MDRD equation for patients that are not between the ages of 18 and 70, are , have extremes of body size, muscle mass, or nutritional status, or are non- or non-. According to the National Kidney Foundation, irrespective of diagnosis, the stage of the disease is based on the level of kidney function: Stage Description GFR(mL/min/1.73 m(2)) 1 Kidney damage with normal or decreased GFR 90 2 Kidney damage with mild decrease in GFR 60-89 3 Moderate decrease in GFR 30-59 4 Severe decrease in GFR 15-29 5 Kidney failure <15 (or dialysis) 68 RUN DATE: 08/23/13 [facility] LAB LIVE PAGE 1 RUN TIME: [address] [place] [address] Specimen Inquiry Name: KEITH OSEGUERA : [address]: Immanuel Niño MD Acct: [id number] Unit: [id number] AGE: 68 Location: [place] Re08/22/13 SEX: M Status: REG [facility] SPEC: [id number] JANIA: 08/22/13- [facility] DR: Immanuel Niño MD REQ: [id number] RECD: 08/22/13 STATUS: SOUT _ ORDERED: LEVEL III FINAL DIAGNOSIS Shoulder, left, shavings: Hyperplastic synovium with fibrosis and neovascularization and fragments of fibrocartilage and bone with degenerative features. PRE-OPERATIVE DIAGNOSIS Left shoulder rotator cuff tear. GROSS DESCRIPTION The specimen is received in formalin labeled Keith Z. Oumar, Shavings Left Shoulder, and consists of a 0.5 x 0.5 x 0.3 cm. aggregate of yellow and white tissue fragments. Luggage Repairer sections, one cassette. Signed (signature on file) Ronald Pappas MD 1521 END OF REPORT * ML=Testing performed at Main Lab DEPARTMENT OF PATHOLOGY, [address] [place] [address] Ronald Pappas M.D. Director [facility] # [id number] 69 Because ethnic data is not always readily available, this report includes an eGFR for both -Americans and non- Americans. The National Kidney Disease Education Program (NKDEP) does not endorse the use of the MDRD equation for patients that are not between the ages of 18 and 70, are , have extremes of body size, muscle mass, or nutritional status, or are non- or non-. According to the National Kidney Foundation, irrespective of diagnosis, the stage of the disease is based on the level of kidney function: Stage Description GFR(mL/min/1.73 m(2)) 1 Kidney damage with normal or decreased GFR 90 2 Kidney damage with mild decrease in GFR 60-89 3 Moderate decrease in GFR 30-59 4 Severe decrease in GFR 15-29 5 Kidney failure <15 (or dialysis) 70 Therapeutic target for the treatment of diabetes Mellitus patients is <7% HBA1C, and in selective patients <6.0%.Please refer to [place] [employer] Diabetic care guidelines for further information. 71 Interpretation: 51-80 ng/mL (increased risk of hypercalciuria) -- REFERENCE VALUE -- 25-HYDROXY D TOTAL (D2+D3) Optimum levels in the healthy population are 20-50, patients with bone disease may benefit from higher levels within this range. Test Performed by: [place] [address] Ornamental Iron Worker: Kieran Martinez III, M.D. 72 Because ethnic data is not always readily available, this report includes an eGFR for both -Americans and non- Americans. The National Kidney Disease Education Program (NKDEP) does not endorse the use of the MDRD equation for patients that are not between the ages of 18 and 70, are , have extremes of body size, muscle mass, or nutritional status, or are non- or non-. According to the National Kidney Foundation, irrespective of diagnosis, the stage of the disease is based on the level of kidney function: Stage Description GFR(mL/min/1.73 m(2)) 1 Kidney damage with normal or decreased GFR 90 2 Kidney damage with mild decrease in GFR 60-89 3 Moderate decrease in GFR 30-59 4 Severe decrease in GFR 15-29 5 Kidney failure <15 (or dialysis) 73 Interpretation: >80 ng/mL (toxicity possible) -- REFERENCE VALUE -- 25-HYDROXY D TOTAL (D2+D3) Optimum levels in the healthy population are 20-50, patients with bone disease may benefit from higher levels within this range. Test Performed by: [address] [address] Ornamental Iron Worker: Kieran Martinez III, M.D. 74 Collected from 01/22/13 0545AM through 01/23/13 0545AM 75 Because ethnic data is not always readily available, this report includes an eGFR for both -Americans and non- Americans. The National Kidney Disease Education Program (NKDEP) does not endorse the use of the MDRD equation for patients that are not between the ages of 18 and 70, are , have extremes of body size, muscle mass, or nutritional status, or are non- or non-. According to the National Kidney Foundation, irrespective of diagnosis, the stage of the disease is based on the level of kidney function: Stage Description GFR(mL/min/1.73 m(2)) 1 Kidney damage with normal or decreased GFR 90 2 Kidney damage with mild decrease in GFR 60-89 3 Moderate decrease in GFR 30-59 4 Severe decrease in GFR 15-29 5 Kidney failure <15 (or dialysis) 76 FASTING 77 FASTING 78 Because ethnic data is not always readily available, this report includes an eGFR for both -Americans and non- Americans. The National Kidney Disease Education Program (NKDEP) does not endorse the use of the MDRD equation for patients that are not between the ages of 18 and 70, are , have extremes of body size, muscle mass, or nutritional status, or are non- or non-. According to the National Kidney Foundation, irrespective of diagnosis, the stage of the disease is based on the level of kidney function: Stage Description GFR(mL/min/1.73 m(2)) 1 Kidney damage with normal or decreased GFR 90 2 Kidney damage with mild decrease in GFR 60-89 3 Moderate decrease in GFR 30-59 4 Severe decrease in GFR 15-29 5 Kidney failure <15 (or dialysis) 79 HDL Interpretation: Undesirable: High Risk: Less than 40 mg/dL Desirable: Low Risk: Greater than 60 mg/dL 80 LDL Interpretation: Low Risk Optimal Level: LDL Less than 100 mg/dL Near or Above Optimal: LDL 100-129 mg/dL Borderline High Risk: LDL 130-159 mg/dL High Risk: LDL 160-189 mg/dL Very High Risk: LDL Greater than 189 mg/dL 81 Therapeutic target for the treatment of diabetes Mellitus patients is <7% HBA1C, and in selective patients <6.0%.Please refer to [place] [employer] Diabetic care guidelines for further information. 82 Serum levels of PSA measured using the [employer] DXI Hybritech immunoassay should not be interpreted as absolute evidence of the presence or absence of disease. The PSA value should be used in conjunction with other pertinent clinical diagnostic procedures. The values obtained with different assay methods or kits cannot be used interchangeably. 83 RUN DATE: 08/04/12 [facility] LAB LIVE PAGE 1 RUN TIME: [address] [place] [address] Specimen Inquiry Name: KEITH OSEGUERA : [address]: Yash Weinstein MD Acct: [id number] Unit: [id number] AGE: 67 Location: [facility] Re08/03/12 SEX: M Status: REG REF SPEC: [id number] JANIA: 08/03/[address]53 [facility] [address]: Yash Weinstein MD REQ: [id number] RECD: 08/03/12 STATUS: SALVADOR TORREZ DR: Jeniffer Monzon MD _ SOURCE: GAS ANTRUM SPDESC: ORDERED: Clotest Procedure Result Verified Site Clotest Final 08/04/12- 0748 ML Clotest Negative END OF REPORT * ML=Testing performed at Main Lab DEPARTMENT OF PATHOLOGY, [facility] [employer] [place], [place] [address] Ronald Pappas M.D. Director [facility] Permit #[id number] RUN DATE: 08/09/12 [facility] LAB LIVE PAGE 1 RUN TIME: 1319 [facility] [employer] [place], [place] [address] Specimen Inquiry Name: KEITH OSEGUERA : [address]: Yash Weinstein MD Acct: [id number] Unit: [id number] AGE: 67 Location: [facility] Re08/03/12 SEX: M Status: REG REF SPEC: [id number] JANIA: 08/03/12- SUBM DR: Yash Weinstein MD REQ: [id number] RECD: 08/03/12 STATUS: ASAD TORREZ DR: Jeniffer Monzon MD _ ORDERED: H PYLORI IMM , LEVEL IV An immunohistochemical stain for Helicobacter pylori-like organisms was performed with appropriate controls and is negative. Addendum Signed (signature on file) Ronald Pappas MD 1319 FINAL DIAGNOSIS Stomach, biopsies: A. Gastric antral type mucosa with chronic inflammation and foveolar hyperplasia. B. No active gastritis or Helicobacter pylori-like organisms are identified. C. Detached fragment of acute inflammatory exudate. D. No specific areas of ulceration are noted. CLINICAL HISTORY Gastroesophageal reflux disease POST-OPERATIVE DIAGNOSIS Esophagus - no erosion/Story's; stomach - 2 cm. hiatal hernia, small erosions in gastric antrum, biopsied, no ulcer; duodenum - mild duodenitis, no ulcer, normal 2nd and 3rd portions GROSS DESCRIPTION The specimen is received in formalin labeled Keith Oseguera, Biopsy Gastric Erosions, and consists of two erazo, soft tissue fragments measuring 0.6 x 0.3 x 0.2 cm. Submitted entirely, one cassette. Signed (signature on file) Ronald Pappas MD 1451 END OF REPORT * ML=Testing performed at Main Lab DEPARTMENT OF PATHOLOGY, [address] [place] [address] Ronald Pappas M.D. Director [facility] Permit #[id number] 85 Serum levels of PSA measured using the [employer] DXI Hybritech immunoassay should not be interpreted as absolute evidence of the presence or absence of disease. The PSA value should be used in conjunction with other pertinent clinical diagnostic procedures. The values obtained with different assay methods or kits cannot be used interchangeably. 86 Because ethnic data is not always readily available, this report includes an eGFR for both -Americans and non- Americans. The National Kidney Disease Education Program (NKDEP) does not endorse the use of the MDRD equation for patients that are not between the ages of 18 and 70, are , have extremes of body size, muscle mass, or nutritional status, or are non- or non-. According to the National Kidney Foundation, irrespective of diagnosis, the stage of the disease is based on the level of kidney function: Stage Description GFR(mL/min/1.73 m(2)) 1 Kidney damage with normal or decreased GFR 90 2 Kidney damage with mild decrease in GFR 60-89 3 Moderate decrease in GFR 30-59 4 Severe decrease in GFR 15-29 5 Kidney failure <15 (or dialysis) 87 -- REFERENCE VALUE -- 25-HYDROXY D TOTAL (D2+D3) Optimum levels in the normal population are 25-80 Test Performed by: [place] [address] Ornamental Iron Worker: Kieran Martinez III, M.D. R 88 Because ethnic data is not always readily available, this report includes an eGFR for both -Americans and non- Americans. The National Kidney Disease Education Program (NKDEP) does not endorse the use of the MDRD equation for patients that are not between the ages of 18 and 70, are , have extremes of body size, muscle mass, or nutritional status, or are non- or non-. According to the National Kidney Foundation, irrespective of diagnosis, the stage of the disease is based on the level of kidney function: Stage Description GFR(mL/min/1.73 m(2)) 1 Kidney damage with normal or decreased GFR 90 2 Kidney damage with mild decrease in GFR 60-89 3 Moderate decrease in GFR 30-59 4 Severe decrease in GFR 15-29 5 Kidney failure <15 (or dialysis) 89 Therapeutic target for the treatment of diabetes Mellitus patients is <7% HBA1C, and in selective patients <6.0%.Please refer to [place] [employer] Diabetic care guidelines for further information. 90 Desirable: Less than 200 MG/DL Borderline-High Risk: 200-239 MG/DL High-Risk: 240 MG/DL and over 91 HDL Interpretation: Undesirable: High Risk: Less than 40 MG/DL Desirable: Low Risk: Greater than 60 MG/DL 92 Serum levels of PSA measured using the [employer] [place] [employer] DXI Hybritech immunoassay should not be interpreted as absolute evidence of the presence or absence of disease. The PSA value should be used in conjunction with other pertinent clinical diagnostic procedures. The values obtained with different assay methods or kits cannot be used interchangeably. 93 A metabolite of Naproxen, O-desmethylnaproxen, has been shown to interfere with the Jendrassik-Kennedy method for measuring total bilirubin. Samples from patients who have taken Naproxen have shown spurious elevation in total bilirubin levels. 94 Because ethnic data is not always readily available, this report includes an eGFR for both -Americans and non- Americans. The National Kidney Disease Education Program (NKDEP) does not endorse the use of the MDRD equation for patients that are not between the ages of 18 and 70, are , have extremes of body size, muscle mass, or nutritional status, or are non- or non-. According to the National Kidney Foundation, irrespective of diagnosis, the stage of the disease is based on the level of kidney function: Stage Description GFR(mL/min/1.73 m(2)) 1 Kidney damage with normal or decreased GFR 90 2 Kidney damage with mild decrease in GFR 60-89 3 Moderate decrease in GFR 30-59 4 Severe decrease in GFR 15-29 5 Kidney failure <15 (or dialysis) 95 ---- RUN DATE: 08/31/11 [facility] NMI LIVE PAGE 1 RUN TIME: 1451 Specimen Inquiry RUN USER: INTERFACE -- Name: OUMARKEITH Middleton Status: REG REF Re08/30/11 Age/Sex: 66/M Unit#: [id number] Location: [facility] : 46 -- Specimen: [id number] SOUT Spec Date:08/30/11 Dr: Yash osuna MD Spec Type: SURGICAL P Received:08/30/11-1305 Copies to: Jeniffer birch MD SPECIMEN BIOPSY RECTAL POLYPS HISTORY POST-OP DIAGNOSIS: Colonoscopy into cecum, plrep good - 2 small rectal po lyps removed CLINICAL INFORMATION: Screening colonoscopy (prior history of colon polyp s) GROSS DESCRIPTION The specimen is received in formalin labelled Keith Oseguera, Biopsy Rectal Polyp, and consists of two erazo soft tissue fragments measuring 0.5 x 0.2 x 0.3 cm. Submitted entirely, one cassette. DIAGNOSIS Colon, rectum, biopsy: Hyperplastic polyps. Signed Electronically by: RONALD PAPPAS MD 08/31/11 7655 -- -- DEPARTMENT OF PATHOLOGY, [address] [place] [address] [facility] Permit #[id number] Ronald Pappas M.D. Director Kyra Downing M.D. Activated Sludge Operator Dir otto -- 96 FAX RESULTS TO [facility] AT FAX NUMBER [phone] 24HOUR URINE COLLECTED STARTING 07/21/11 AT 4:20AM THRU 07/22/11 4:10AM 97 Test Performed by: [facility] Dpt of Lab Med and Pathology [address] [place] [address] Ornamental Iron Worker: Kieran Martinez III, M.D. 98 Interpretation: >80 (toxicity possible) -- REFERENCE VALUE -- 25-HYDROXY D TOTAL (D2+D3) Optimum levels in the normal population are 25-80 Test Performed by: [facility] Dpt of Lab Med and Pathology [address] [place] [address] Ornamental Iron Worker: Kieran Martinez III, M.D. 99 Anion gap measurement may be of limited value in the presence of any alkalosis, especially in a combined acid base disorder. . 100 Because ethnic data is not always readily available, this report includes an eGFR for both -Americans and non- Americans. The National Kidney Disease Education Program (NKDEP) does not endorse the use of the MDRD equation for patients that are not between the ages of 18 and 70, are , have extremes of body size, muscle mass, or nutritional status, or are non- or non-. According to the National Kidney Foundation, irrespective of diagnosis, the stage of the disease is based on the level of kidney function: Stage Description GFR(mL/min/1.73 m(2)) 1 Kidney damage with normal or decreased GFR 90 2 Kidney damage with mild decrease in GFR 60-89 3 Moderate decrease in GFR 30-59 4 Severe decrease in GFR 15-29 5 Kidney failure <15 (or dialysis) 101 Interpretation: >80 (toxicity possible) -- REFERENCE VALUE -- 25-HYDROXY D TOTAL (D2+D3) Optimum levels in the normal population are 25-80 Test Performed by: [facility] Dpt of Lab Med and Pathology [address] [place], [place] [id number] Ornamental Iron Worker: Kieran Martinez III, M.D. 102 Anion gap measurement may be of limited value in the presence of any alkalosis, especially in a combined acid base disorder. . 103 Because ethnic data is not always readily available, this report includes an eGFR for both -Americans and non- Americans. The National Kidney Disease Education Program (NKDEP) does not endorse the use of the MDRD equation for patients that are not between the ages of 18 and 70, are , have extremes of body size, muscle mass, or nutritional status, or are non- or non-. According to the National Kidney Foundation, irrespective of diagnosis, the stage of the disease is based on the level of kidney function: Stage Description GFR(mL/min/1.73 m(2)) 1 Kidney damage with normal or decreased GFR 90 2 Kidney damage with mild decrease in GFR 60-89 3 Moderate decrease in GFR 30-59 4 Severe decrease in GFR 15-29 5 Kidney failure <15 (or dialysis) 104 CHOLESTEROL INTERPRETATION: Desirable: Less than 200 MG/DL Borderline-High Risk: 200-239 MG/DL High-Risk: 240 MG/DL and over 105 HDL INTERPRETATION: Undesirable: High Risk: Less than 40 MG/DL Desirable: Low Risk: Greater than 60 MG/DL 106 LDL INTERPRETATION: Low Risk Optimal Level: LDL Less than 100 MG/DL Near or Above Optimal: LDL 100-129 MG/DL Borderline High Risk: LDL 130-159 MG/DL High Risk: LDL 160-189 MG/DL Very High Risk: LDL Greater than 189 MG/DL 107 THERAPEUTIC TARGET FOR THE TREATMENT OF DIABETES MELLITUS PATIENTS IS <7% HBA1C, AND IN SELECTIVE PATIENTS <6.0%. PLEASE REFER TO [place] [employer] DIABETIC CARE GUIDELINES FOR FURTHER INFORMATION. 108 Interpretation: >80 (toxicity possible) -- REFERENCE VALUE -- 25-HYDROXY D TOTAL (D2+D3) Optimum levels in the normal population are 25-80 Test Performed by: [facility] Dpt of Lab Med and Pathology [address] [place] [address] Ornamental Iron Worker: Kieran Martinez III, M.D. 109 Anion gap measurement may be of limited value in the presence of any alkalosis, especially in a combined acid base disorder. . 110 Because ethnic data is not always readily available, this report includes an eGFR for both -Americans and non- Americans. The National Kidney Disease Education Program (NKDEP) does not endorse the use of the MDRD equation for patients that are not between the ages of 18 and 70, are , have extremes of body size, muscle mass, or nutritional status, or are non- or non-. According to the National Kidney Foundation, irrespective of diagnosis, the stage of the disease is based on the level of kidney function: Stage Description GFR(mL/min/1.73 m(2)) 1 Kidney damage with normal or decreased GFR 90 2 Kidney damage with mild decrease in GFR 60-89 3 Moderate decrease in GFR 30-59 4 Severe decrease in GFR 15-29 5 Kidney failure <15 (or dialysis) 111 * SERUM LEVELS OF PSA MEASURED USING THE [employer]AYLOR [employer] ACCESS HYBRITECH IMMUNOASSAY SHOULD NOT BE INTERPRETED ABSOLUTE EVIDENCE OF THE PRESENCE OR ABSENCE OF DISEASE. THE PSA VALUE SHOULD BE USED IN CONJUNCTION WITH OTHER PERTINENT CLINICAL DIAGNOSTIC PROCEDURES. 112 CHOLESTEROL INTERPRETATION: Desirable: Less than 200 MG/DL Borderline-High Risk: 200-239 MG/DL High-Risk: 240 MG/DL and over 113 HDL INTERPRETATION: Undesirable: High Risk: Less than 40 MG/DL Desirable: Low Risk: Greater than 60 MG/DL 114 LDL INTERPRETATION: Low Risk Optimal Level: LDL Less than 100 MG/DL Near or Above Optimal: LDL 100-129 MG/DL Borderline High Risk: LDL 130-159 MG/DL High Risk: LDL 160-189 MG/DL Very High Risk: LDL Greater than 189 MG/DL 115 THERAPEUTIC TARGET FOR THE TREATMENT OF DIABETES MELLITUS PATIENTS IS <7% HBA1C, AND IN SELECTIVE PATIENTS <6.0%. PLEASE REFER TO [place] [employer] DIABETIC CARE GUIDELINES FOR FURTHER INFORMATION. 116 Anion gap measurement may be of limited value in the presence of any alkalosis, especially in a combined acid base disorder. . 117 A metabolite of Naproxen, O-desmethylnaproxen, has been shown to interfere with the Jendrassik-[place] method for measuring total bilirubin. Samples from patients who have taken Naproxen have shown spurious elevation in total bilirubin levels. 118 Because ethnic data is not always readily available, this report includes an eGFR for both -Americans and non- Americans. The National Kidney Disease Education Program (NKDEP) does not endorse the use of the MDRD equation for patients that are not between the ages of 18 and 70, are , have extremes of body size, muscle mass, or nutritional status, or are non- or non-. According to the National Kidney Foundation, irrespective of diagnosis, the stage of the disease is based on the level of kidney function: Stage Description GFR(mL/min/1.73 m(2)) 1 Kidney damage with normal or decreased GFR 90 2 Kidney damage with mild decrease in GFR 60-89 3 Moderate decrease in GFR 30-59 4 Severe decrease in GFR 15-29 5 Kidney failure <15 (or dialysis) 119 Anion gap measurement may be of limited value in the presence of any alkalosis, especially in a combined acid base disorder. . 120 Because ethnic data is not always readily available, this report includes an eGFR for both -Americans and non- Americans. The National Kidney Disease Education Program (NKDEP) does not endorse the use of the MDRD equation for patients that are not between the ages of 18 and 70, are , have extremes of body size, muscle mass, or nutritional status, or are non- or non-. According to the National Kidney Foundation, irrespective of diagnosis, the stage of the disease is based on the level of kidney function: Stage Description GFR(mL/min/1.73 m(2)) 1 Kidney damage with normal or decreased GFR 90 2 Kidney damage with mild decrease in GFR 60-89 3 Moderate decrease in GFR 30-59 4 Severe decrease in GFR 15-29 5 Kidney failure <15 (or dialysis) 121 Interpretation: >80 (toxicity possible) -- REFERENCE VALUE -- 25-HYDROXY D TOTAL (D2+D3) Optimum levels in the normal population are 25-80 Test Performed by: [facility] Dpt of Lab Med and Pathology [address] [place] [address] Ornamental Iron Worker: Kieran Martinez III, M.D. 122 Test Performed by: [facility] Dpt of Lab Med and Pathology [address] [place] [address] Ornamental Iron Worker: Kieran Martinez III, M.D. 123 INFCE Result Units: nmol/mmol Units of measurement are: nmol Bone Collagen Equivalents/mmol Creatinine Test Performed by: [facility] Dpt of Lab Med and Pathology [address] [place] [address] Ornamental Iron Worker: Kieran Martinez III, M.D. 124 Test Performed by: [facility] Dpt of Lab Med and Pathology [address] [place] [address] Ornamental Iron Worker: Kieran Martinez III, M.D. 125 TEST RESULT RETURNED FROM REFERENCE LABORATORY AND HARDCOPY SENT TO PHYSICIAN(S) OFFICE. 126 Anion gap measurement may be of limited value in the presence of any alkalosis, especially in a combined acid base disorder. . 127 Because ethnic data is not always readily available, this report includes an eGFR for both -Americans and non- Americans. The National Kidney Disease Education Program (NKDEP) does not endorse the use of the MDRD equation for patients that are not between the ages of 18 and 70, are , have extremes of body size, muscle mass, or nutritional status, or are non- or non-. According to the National Kidney Foundation, irrespective of diagnosis, the stage of the disease is based on the level of kidney function: Stage Description GFR(mL/min/1.73 m(2)) 1 Kidney damage with normal or decreased GFR 90 2 Kidney damage with mild decrease in GFR 60-89 3 Moderate decrease in GFR 30-59 4 Severe decrease in GFR 15-29 5 Kidney failure <15 (or dialysis) 128 THERAPEUTIC TARGET FOR THE TREATMENT OF DIABETES MELLITUS PATIENTS IS <7% HBA1C, AND IN SELECTIVE PATIENTS <6.0%. PLEASE REFER TO [place] [employer] DIABETIC CARE GUIDELINES FOR FURTHER INFORMATION. 129 Anion gap measurement may be of limited value in the presence of any alkalosis, especially in a combined acid base disorder. . 130 A metabolite of Naproxen, O-desmethylnaproxen, has been shown to interfere with the Jendrassik-Kennedy method for measuring total bilirubin. Samples from patients who have taken Naproxen have shown spurious elevation in total bilirubin levels. 131 Because ethnic data is not always readily available, this report includes an eGFR for both -Americans and non- Americans. The National Kidney Disease Education Program (NKDEP) does not endorse the use of the MDRD equation for patients that are not between the ages of 18 and 70, are , have extremes of body size, muscle mass, or nutritional status, or are non- or non-. According to the National Kidney Foundation, irrespective of diagnosis, the stage of the disease is based on the level of kidney function: Stage Description GFR(mL/min/1.73 m(2)) 1 Kidney damage with normal or decreased GFR 90 2 Kidney damage with mild decrease in GFR 60-89 3 Moderate decrease in GFR 30-59 4 Severe decrease in GFR 15-29 5 Kidney failure <15 (or dialysis) 132 Recommended INR for Patients on Oral Anticoagulants Prophylaxis 2.0 - 3.0 Treatment of thrombosis 2.0 - 3.0 Prevention of embolism 2.0 - 3.0 Prevention of embolism from prosthetic heart valves 2.5 - 3.5 133 DIAGNOSIS,TREATMENT,AND THERAPY MUST BE BASED ON THE INR VALUE ALONE. 134 Neutropenia % Monocytosis % 135 ----- RUN DATE: 03/02/10 [facility] NMI LIVE PAGE 1 RUN TIME: 1527 Specimen Inquiry RUN USER: INTERFACE -- Name: KEITH OSEGUERA Status: REG REF Re02/26/10 Age/Sex: 64/M Unit#: [id number] Location: [facility]. : 46 -- Specimen: [id number] SOUT Spec Date: 02/26/[address]: Kyra carlin MD Spec Type: CYTOLOGY Received: 02/26/10-8613 Copies to: Jeniffer Leblanc MD SOURCE FINE NEEDLE ASPIRATION right posterior triangular node, by palpation PATIENT INFORMATION ACTUAL COLLECTION DATE: 02/26/10 PATIENT HISTORY: swelling in head and neck, enlarged lymph nodes GROSS DESCRIPTION Fine needle aspiration by palpation x 2 passes with 1 alcohol fixed slide(s) from pass #1, 1 air dried slide(s) from pass#2. Specimen sent for Flow Cytometry on 02/26/10 to [facility] in [place], [place]. IMMEDIATE INTERPRETATION Right posterior triangular node, fine needle aspiration by palpation: Adequate DIAGNOSIS Right posterior triangular node, fine needle aspiration by palpation: Benign- mixed small lymphocytes seen. COMMENT Flow Cytometry Immunophenotypic Report has been performed at [facility] in [place], [place]. The testing reveals: Patient Name: KEITH OSEGUERA Collection Date: 02/26/2010 Ordering Physician: Kyra Downing Received Date: 02/27/2010 Report Date: 02/27/2010 Ordering Facility: [facility] Ref #: [id number] Specimen ID #: [id number] Date of ,Sex: 1945, M INTERPRETATION: Flow Cytometry Immunophenotypic Report -- DEPARTMENT OF PATHOLOGY, [address] [place] [address] [facility] Permit #[id number] Ronald Pappas M.D. Director Kyra Downing M.D. Activated Sludge Operator Dir otto -- -- RUN DATE: 03/02/10 [facility] NMI LIVE PAGE 2 RUN TIME: 1527 Specimen Inquiry RUN USER: INTERFACE -- [id number]: REG REF Re02/26/10 Age/Sex: 64/M Unit#: [id number] Location: [facility]. : 46 -- -- CONTINUED -- COMMENT (Continued) RIGHT POSTERIOR TRIANGLE FNA: NO ABERRANT LYMPHOID IMMUNOPHENOTYPIC EXPRESSION DETECTED Comments: Correlation with available clinical, laboratory, and morphologic data is recommended Submitted Dx: Evaluation for non-Hodgkin lymphoma Flow Differential Population Analysis Lymphocytes: 99% B-cells: 21%, polytypic/polyclonal sIg light chain pattern T-cells: no aberrant expression of the markers tested CD4:CD8=18, increased (non-specific) NK-cells: less than 1% (not increased) [id number] 1% events/debris: Correlation with available clinical, laboratory, and morphologic data is recommended. Morphologic Evaluation: Slide examined for director quality assurance purposes only. Antibodies Performed: CD2, CD3, CD4, CD5, CD7, CD8, CD19, [place], Lambda, CD20, CD23, FMC-7, CD11b, CD10, CD45, HLA-DR, CD38, CD56, CD30 (Original [facility] report available upon request by calling Pathology at [phone]). Initial evaluation performed by Marli MILLAN([facility]) 02/26/10 Final Interpretation electronically signed by: RONALD PAPPAS MD 03/02/10 15 27 -- -- DEPARTMENT OF PATHOLOGY, [address] [place] [address] [facility] Permit #[id number] Ronald Pappas M.D. Director Kyra Downing M.D. Activated Sludge Operator Dir otto -- 136 Anion gap measurement may be of limited value in the presence of any alkalosis, especially in a combined acid base disorder. . 137 Note change in reference range as of 11/02/07. The change was based on recommendations from the [place] [employer]. 138 Because ethnic data is not always readily available, this report includes an eGFR for both -Americans and non- Americans. The National Kidney Disease Education Program (NKDEP) does not endorse the use of the MDRD equation for patients that are not between the ages of 18 and 70, are , have extremes of body size, muscle mass, or nutritional status, or are non- or non-. According to the National Kidney Foundation, irrespective of diagnosis, the stage of the disease is based on the level of kidney function: Stage Description GFR(mL/min/1.73 m(2)) 1 Kidney damage with normal or decreased GFR 90 2 Kidney damage with mild decrease in GFR 60-89 3 Moderate decrease in GFR 30-59 4 Severe decrease in GFR 15-29 5 Kidney failure <15 (or dialysis) 139 Anion gap measurement may be of limited value in the presence of any alkalosis, especially in a combined acid base disorder. . 140 Note change in reference range as of 11/02/07. The change was based on recommendations from the [place] [employer]. 141 Because ethnic data is not always readily available, this report includes an eGFR for both -Americans and non- Americans. The National Kidney Disease Education Program (NKDEP) does not endorse the use of the MDRD equation for patients that are not between the ages of 18 and 70, are , have extremes of body size, muscle mass, or nutritional status, or are non- or non-. According to the National Kidney Foundation, irrespective of diagnosis, the stage of the disease is based on the level of kidney function: Stage Description GFR(mL/min/1.73 m(2)) 1 Kidney damage with normal or decreased GFR 90 2 Kidney damage with mild decrease in GFR 60-89 3 Moderate decrease in GFR 30-59 4 Severe decrease in GFR 15-29 5 Kidney failure <15 (or dialysis) 142 * SERUM LEVELS OF PSA MEASURED USING THE [employer] ACCESS HYBRITECH IMMUNOASSAY SHOULD NOT BE INTERPRETED ABSOLUTE EVIDENCE OF THE PRESENCE OR ABSENCE OF DISEASE. THE PSA VALUE SHOULD BE USED IN CONJUNCTION WITH OTHER PERTINENT CLINICAL DIAGNOSTIC PROCEDURES. 143 THERAPEUTIC TARGET FOR THE TREATMENT OF DIABETES MELLITUS PATIENTS IS <7% HBA1C, AND IN SELECTIVE PATIENTS <6.0%. PLEASE REFER TO [place] [employer] DIABETIC CARE GUIDELINES FOR FURTHER INFORMATION. 144 CHOLESTEROL INTERPRETATION: Desirable: Less than 200 MG/DL Borderline-High Risk: 200-239 MG/DL High-Risk: 240 MG/DL and over 145 HDL INTERPRETATION: Undesirable: High Risk: Less than 40 MG/DL Desirable: Low Risk: Greater than 60 MG/DL 146 LDL INTERPRETATION: Low Risk Optimal Level: LDL Less than 100 MG/DL Near or Above Optimal: LDL 100-129 MG/DL Borderline High Risk: LDL 130-159 MG/DL High Risk: LDL 160-189 MG/DL Very High Risk: LDL Greater than 189 MG/DL 147 Anion gap measurement may be of limited value in the presence of any alkalosis, especially in a combined acid base disorder. . 148 Note change in reference range as of 11/02/07. The change was based on recommendations from the [place] [employer]. 149 Please note change in reference range effective 07 . 150 A metabolite of Naproxen, O-desmethylnaproxen, has been shown to interfere with the Jendrassik-[place] method for measuring total bilirubin. Samples from patients who have taken Naproxen have shown spurious elevation in total bilirubin levels. 151 Because ethnic data is not always readily available, this report includes an eGFR for both -Americans and non- Americans. The National Kidney Disease Education Program (NKDEP) does not endorse the use of the MDRD equation for patients that are not between the ages of 18 and 70, are , have extremes of body size, muscle mass, or nutritional status, or are non- or non-. According to the National Kidney Foundation, irrespective of diagnosis, the stage of the disease is based on the level of kidney function: Stage Description GFR(mL/min/1.73 m(2)) 1 Kidney damage with normal or decreased GFR 90 2 Kidney damage with mild decrease in GFR 60-89 3 Moderate decrease in GFR 30-59 4 Severe decrease in GFR 15-29 5 Kidney failure <15 (or dialysis) 152 Anion gap measurement may be of limited value in the presence of any alkalosis, especially in a combined acid base disorder. . 153 Note change in reference range as of 11/02/07. The change was based on recommendations from the [place] [employer]. 154 Please note change in reference range effective 07 . 155 Because ethnic data is not always readily available, this report includes an eGFR for both -Americans and non- Americans. The National Kidney Disease Education Program (NKDEP) does not endorse the use of the MDRD equation for patients that are not between the ages of 18 and 70, are , have extremes of body size, muscle mass, or nutritional status, or are non- or non-. According to the National Kidney Foundation, irrespective of diagnosis, the stage of the disease is based on the level of kidney function: Stage Description GFR(mL/min/1.73 m(2)) 1 Kidney damage with normal or decreased GFR 90 2 Kidney damage with mild decrease in GFR 60-89 3 Moderate decrease in GFR 30-59 4 Severe decrease in GFR 15-29 5 Kidney failure <15 (or dialysis) Procedures Date Code Description Status 04/19/2017 18149 EKG Tracing & Interpretation Completed 07/27/2016 53848 Admin & Interp Of Health Risk Assessment w/ Patient Completed 01/13/2016 [id number] Bone Mineral Density Test Completed 07/09/2014 75144 Pare Hyperkeratotic Lesion Singl Completed 10/31/2013 [id number] Colonoscopy Completed 08/22/2013 10014 Arthroscopy Shoulder,W/Rotator Cuff Repair Completed 08/22/2013 33437 Arthroscopy Shoulder,W/Rotator Cuff Repair Completed 08/22/2013 28716 Arthroscopy,Shoulder Decompression Of Subacromial Completed Space W/Acromio 08/22/2013 08586 Arthroscopy,Shoulder Decompression Of Subacromial Completed Space W/Acromio 07/31/2013 06236 EKG Tracing & Interpretation Completed 01/07/2012 67849 EKG Tracing & Interpretation Completed 08/30/2011 [id number] Colonoscopy Completed 07/22/2011 [id number] Bone Mineral Density Test Completed 10/19/2010 67367 EKG Tracing & Interpretation Completed 12/11/2009 [id number] Diabetic Foot Exam Completed 04/04/2009 99883 EKG Tracing & Interpretation Completed 09/27/2007 92986 EKG Tracing & Interpretation Completed 09/27/2007 10512 EKG Tracing & Interpretation Completed 07/27/2007 [id number] Bone Mineral Density Test Completed 08/10/2006 85894984 Colonoscopy Completed 03/17/2006 36872 EKG Tracing & Interpretation Completed 03/17/2006 49319 EKG Tracing & Interpretation Completed 03/15/2006 63910 EKG Tracing & Interpretation Completed 02/05/2003 11318 Treadmill Interp/Report Only Completed 02/05/2003 83319 Stress Test Supervsn W/Out I/R Completed Encounters Type Date Location Provider Dx Diagnosis Office Visit 05/02/2018 Mahsa Monzon, Z00.00 Encntr for 1:20p Internal M.D. general adult Medicine-[place] medical exam w/o d abnormal findings R91.8 Other nonspecific abnormal finding of lung field R73.01 Impaired fasting glucose Z68.29 Body mass index (BMI) 29.0-29.9, adult Office Visit 03/22/2017 11:20a [facility] Jeniffer R04.2 Hemoptysis Rosaline Monzon M.D. Ccmob Office Visit 12/16/2016 11:40a [facility] Jeniffer R59.0 Localized Rosaline Monzon M.D. enlarged lymph Ccmob nodes Office Visit 07/27/2016 11:00a [facility] Jeniffer Z00.00 Encntr for Rosaline Monzon M.D. general adult [facility] w/o abnormal findings E78.5 Hyperlipidemia, unspecified Office Visit 12/04/2015 10:00a [facility] Jeniffer M79.672 Pain in left foot Rosaline Monzon M.D. Ccmob Office Visit 10/24/2015 10:40a [facility] Keith Son, R59.0 Localized Rosaline Ruiz M.D. enlarged lymph Ccmob nodes Office Visit 06/11/2015 10:20a [facility] Monica Carroll, J06.9 Acute upper Medicine - N.P. respiratory Ccmob infection, unspecified Office Visit 03/26/2015 2:20p [facility] Ryan Dale NP M77.11 Lateral Medicine - epicondylitis, Ccmob right elbow H92.02 Otalgia, left ear M25.512 Pain in left shoulder Office Visit 01/16/2015 3:40p [facility] Jeniffer Z00.00 Encntr for Rosaline Monzon M.D. general adult medical exam w/o abnormal findings R73.01 Impaired fasting glucose E78.2 Mixed hyperlipidemia Z23 Encounter for immunization Office Visit 07/09/2014 10:00a [facility] Jeniffer 272.2 Hyperlipidemia Mixed Rosaline Monzon M.D. Ccmob 790.21 Impaired Fasting Glucose 700 Corns & Callosities Office Visit 05/20/2014 3:00p [facility] Ryan Dale NP 719.44 Pain Joint Hand Medicine - [facility] Visit 02/26/2014 1:15p Orthopedic Immanuel Niño, 840.4 Sprains & Strains Services Of Arlette Rotator Cuff C.M.A. (Capsule) Office Visit 01/08/2014 3:40p [facility] Jeniffer V70.0 Examination Medicine - Mario Monzon M.D. General Medical Routine AT Health Care Facility 790.21 Impaired Fasting Glucose 272.4 Hyperlipidemia Other Unspec 787.91 Diarrhea 700 Corns & Callosities v04.81 Need For Prophylactic Vaccination & Inoculation/Influenza Office Visit 11/22/2013 8:30a Orthopedic Immanuel Niño, 840.4 Sprains & Services Of M.DBerna Strains Rotator C.M.A. Cuff (Capsule) Office Visit 10/22/2013 9:00a [facility] Ryan Dale NP 787.91 Diarrhea Medicine - Ccmob Office Visit 10/15/2013 2:00p [facility] Ryan Dale NP 787.91 Diarrhea Medicine - Ccmob Office Visit 09/27/2013 10:00a [facility] Jeniffer 787.91 Diarrhea Medicine - Mario Monzon M.D. 275.41 Hypocalcemia Office Visit 09/24/2013 3:40p [facility] Jesus Johnson 787.91 Diarrhea Rosaline Weathers M.D. Ccmob Office Visit 07/31/2013 11:20a [facility] Jeniffer V72.84 Examination Rosaline Monzon M.D. Preoperative Ccmob Unspec 726.19 Shoulder Disorders Other Spec 401.1 Hypertension Benign 275.41 Hypocalcemia Office Visit 06/14/2013 10:00a Orthopedic Immanuel Niño, 840.4 Sprains & Strains Services Of M.D. Rotator Cuff C.M.A. (Capsule) Office Visit 03/27/2013 3:40p [facility] Jeniffer 840.9 Sprains & Strains Medicine Sara Monzon M.D. Shoulder & Upper Arm Unspec Office Visit 01/05/2013 11:00a [facility] Jeniffer V70.0 Examination Medicine Sara Monzon M.D. General Medical Routine AT [facility] Care Facility 790.21 Impaired Fasting Glucose 719.40 Pain Joint Site Unspec 381.81 Eustachian Tube Dysfunction V04.81 Need For Prophylactic Vaccination & Inoculation/Influenza Office Visit 10/10/2012 11:00a [facility] Jeniffer Monzon 782.1 Rash & Other Medicine - Mario Chong Nonspec Skin Eruption 719.40 Pain Joint Site Unspec Office Visit 07/13/2012 9:20a [facility] Monica Carroll, 686.9 Local Infection Of Medicine - N.P. Skin And [facility] Subcutaneous Tissue Unspec Office Visit 06/05/2012 8:40a [facility] Jeniffer 530.81 Esophageal Reflux Medicine - Cotton, M.D. Ccmob 719.40 Pain Joint Site Unspec Office Visit 02/07/2012 2:00p [facility] Jeniffer Monzon, 780.79 Malaise And Medicine - Mario M.D. Fatigue Other 790.21 Impaired Fasting Glucose 530.81 Esophageal Reflux Office Visit 01/07/2012 3:00p [facility] Jeniffer Monzon 780.79 Malaise And Medicine - Mario M.D. Fatigue Other 401.1 Hypertension Benign V04.81 Need For Prophylactic Vaccination & Inoculation/Influenza 600.00 Hypertrophy Prostate W/O Urinary Obstruction & Other Luts 790.21 Impaired Fasting Glucose 272.0 Hypercholesterolemia Pure 530.81 Esophageal Reflux Office Visit 07/16/2011 11:40a [facility] Jeniffer 784.1 Throat Pain Rosaline Monzon M.D. Ccmob Office Visit 05/06/2011 1:00p [facility] Jeniffer 922.32 Contusion Rosaline Monzon M.D. Buttock Ccmob Office Visit 04/22/2011 9:40a [facility] Jeniffer 790.21 Impaired Fasting Rosaline Monzon M.D. Glucose Ccmob 401.1 Hypertension Benign 696.8 Psoriasis Other v03.82 Streptococcus Pneumoniae Vaccination Spec Other Office Visit 03/30/2011 9:00a [facility] Monica Carroll, 719.43 Pain Joint Medicine - N.PBerna Forearm Ccmob Office Visit 02/01/2011 11:40a DO Not Use Jeniffer E906.4 Bite Nonvenomous Rachel Monzon M.D. Arthropod 272.2 Hyperlipidemia Mixed 790.21 Impaired Fasting Glucose 782.1 Rash & Other Nonspec Skin Eruption Office Visit 10/19/2010 DO Not Use Jeniffer V70.0 Examination 9:00a Rachel Monzon M.D. General Medical Routine AT [facility] Care Facility 790.21 Impaired Fasting Glucose V76.44 Screening For Malig Mann Prostate 401.1 Hypertension Benign Office Visit 10/07/2010 DO Not Use Monica Carroll, 088.81 Lyme Disease 10:40a Rachel N.P. Office Visit 08/31/2010 DO Not Use Jeniffer 780.4 Dizziness & 1:20p Creative Engagement Director-[place] Cotton, M.D. Giddiness 696.1 Psoriasis Other Office Visit 04/14/2010 DO Not Use Jeniffer 785.6 Lymph Nodes 8:30a Rachel Monzon M.D. Enlargement 790.21 Impaired Fasting Glucose Office Visit 02/03/2010 DO Not Use Jeniffer 785.6 Lymph Nodes 9:45a Rachel Monzon M.D. Enlargement Office Visit 01/23/2010 DO Not Use Jeniffer 785.6 Lymph Nodes 4:30p Rachel Monzon M.D. Enlargement Office Visit 12/12/2009 DO Not Use Jeniffer 785.6 Lymph Nodes 10:00a Rachel Monzon M.D. Enlargement Office Visit 11/07/2009 DO Not Use Jeniffer 785.6 Lymph Nodes 10:00a Rachel Monzon M.D. Enlargement 700 Corns & Callosities 790.21 Impaired Fasting Glucose Office Visit 10/03/2009 DO Not Use Jeniffer V70.0 Examination 9:00a Rachel Monzon M.D. General Medical Routine AT Health Care Facility 785.6 Lymph Nodes Enlargement 696.1 Psoriasis Other 790.21 Impaired Fasting Glucose Office Visit 04/04/2009 8:30a DO Not Use Ana Roman, 786.50 Pain Chest Rachel Chong Unspec 272.4 Hyperlipidemia Other Unspec 790.21 Impaired Fasting Glucose 401.1 Hypertension Benign Office Visit 09/30/2008 DO Not Use Radleonard, V70.0 Examination 8:45a Rachel Perez M.D. General Medical Routine AT [facility] Care Facility 790.21 Impaired Fasting Glucose 401.1 Hypertension Benign 244.9 Hypothyroidism Other Unspec 272.0 Hypercholesterolemia Pure V05.8 Single Disease Spec Other Vaccination & Inoculation Office Visit 07/12/2008 DO Not Use Jessie, 462 Pharyngitis 9:45a Rachel Perez M.D. Acute Office Visit 04/02/2008 DO Not Use Rad[place]ki, 790.21 Impaired Fasting 8:30a Rachel Perez M.D. Glucose 272.4 Hyperlipidemia Other Unspec 401.1 Hypertension Benign Office Visit 12/22/2007 11:30a DO Not Use Sugar Bo, 682.0 Cellulitis & Rachel Chong, FACP Abscess Face Office Visit 12/19/2007 9:00a DO Not Use Radsheelaki, 704.8 Hair & Hair Rachel Perez M.D. Follicle Diseases Other Spec Office Visit 09/27/2007 1:30p DO Not Use Rad[place]ki, V70.0 Examination Rachel Perez M.D. General Medical Routine AT [facility] Care Facility 401.1 Hypertension Benign Office Visit 07/20/2007 3:15p DO Not Use Rad[place]ki, 790.21 Impaired Rachel Perez M.D. Fasting Glucose 272.0 Hypercholesterolemia Pure Office 03/03/2007 DO Not Use [place]ki, 272.0 Hypercholesterolemia Visit 2:00p Rachel Perez M.D. Pure 401.1 Hypertension Benign Office Visit 01/02/2007 1:15p DO Not Use Radleonard, 729.1 Myalgia & Rachel Perez M.D. Myositis Unspec 244.9 Hypothyroidism Other Unspec Office 11/30/2006 DO Not Use Rad[place]ki, 272.0 Hypercholesterolemia Visit 2:00p Rachel Perez M.D. Pure 401.1 Hypertension Benign 719.40 Pain Joint Site Unspec Office Visit 03/15/2006 DO Not Use Rad[place]ki, 1:15p Rachel Perez M.D. Office Visit 12/17/2005 DO Not Use Radleonard, 289.3 Lymphadenitis 4:30p Rachel Perez M.D. Unspec Except Mesenteric Plan of Treatment Future Appointment(s):05/04/2019 1:20 pm - Jeniffer Monzon M.D. at [facility] - Jeniffer Monzon M.D.R13.10 Dysphagia, unspecifiedComments:See Dr. GaryaReferral:Ag Leblanc MD, [id number] Localized enlarged lymph nodes
[2018-09-23 07:19] VITALS: BP 137/73
--- NOTE | 2018-09-23 07:27 | UC ---
Skin Complaint HPI - HPI Summary HPI Summary: 73-year-old male comes in with a chief complaint of redness and swelling in the left armpit. He noticed it about 3 days ago there was a red area he thought it was an insect bite. Since that time it's swollen up. It's been itchy has used some itching cream. No fevers no chills. Feels well otherwise.'s primary concern is whether or not this is erythema migrans of Lyme disease. - History of Current Complaint Chief Complaint: UCSkin Time Seen by Provider: 09/23/18 07:16 Stated Complaint: LT SHOULDER BITE Pain Intensity: 0 - Allergy/Home Medications Allergies/Adverse Reactions: Allergies Allergy/AdvReac Type Severity Reaction Status Date / Time MS Horse Allergy Allergy Unknown Unknown Verified 08/22/13 06:38 [Horse Allergy] Reaction Details MS Statins [Statins] Allergy Unknown Unknown Verified 08/22/13 06:38 Reaction Details eggplant Allergy Unknown Uncoded 07/30/15 08:26 Reaction Details horse serum Allergy Unknown Uncoded 09/23/18 07:20 Reaction Details statins Allergy Unknown Uncoded 09/23/18 07:20 Reaction Details PMH/Surg Hx/FS Hx/Imm Hx Previously Healthy: Yes Endocrine History: Hypothyroidism, Dyslipidemia Cardiovascular History: Hypertension - Surgical History Surgical History: Yes Surgery Procedure, Year, and Place: THYROIDECTOMY-had radiation 1949 ? why as a child. LEFT WRIST SX- with plate. , [facility] , parathyroid - Family History Known Family History: Positive: Non-Contributory - Social History Alcohol Use: None Substance Use Type: Marijuana Substance Use Comment - Amount & Last Used: TO HELP WITH PAIN- USES ONCE A DAY Smoking Status (MU): Never Smoked Tobacco Amount Used/How Often: 1 PPDX 20 YEARS When Did the Patient Quit Smoking/Using Tobacco: 1983 Review of Systems All Other Systems Reviewed And Are Negative: Yes Constitutional: Positive: Negative Skin: Positive: Other - SEE HPI Eyes: Positive: Negative ENT: Positive: Negative Respiratory: Positive: Negative Cardiovascular: Positive: Negative Gastrointestinal: Positive: Negative Motor: Positive: Negative Neurovascular: Positive: Negative Musculoskeletal: Positive: Negative Neurological: Positive: Negative Psychological: Positive: Negative Is Patient Immunocompromised?: No Physical Exam Triage Information Reviewed: Yes Appearance: Well-Appearing, No Pain Distress, Well-Nourished Vital Signs: Initial Vital Signs Temp 97.7 F 09/23/18 07:13 Pulse 64 09/23/18 07:13 Resp 18 09/23/18 07:13 BP 137/73 09/23/18 07:13 Pulse Ox 98 09/23/18 07:13 Vital Signs Reviewed: Yes Eye Exam: Normal Eyes: Positive: Conjunctiva Clear Neck: Positive: Supple Respiratory: Positive: No respiratory distress Musculoskeletal Exam: Normal Musculoskeletal: Positive: Strength Intact, ROM Intact Neurological Exam: Normal Neurological: Positive: Alert, Muscle Tone Normal Psychological Exam: Normal Psychological: Positive: Normal Response To Family, Age Appropriate Behavior Skin: Positive: Other - In the left axilla there is an erythematous raised lesion 2 cm long by 1 cm wide. Nontender to palpation. No foreign body appreciated on exam. Course/Dx - Course Course Of Treatment: The skin lesion appears to be a skin infection possibly with localized reaction from an insect bite. It does not appear to be atypical bull's-eye rash however the patient expresses concern of Lyme disease in to be treated for Lyme disease therefore we'll treat with doxycycline 100 mg by mouth twice a day for 14 days. Patient's to get reevaluated if worse or any questions or concerns. - Diagnoses Provider Diagnosis: Insect bite Discharge - Sign-Out/Discharge Documenting (check all that apply): Patient Departure All imaging exams completed and their final reports reviewed: No Studies - Discharge Plan Condition: Stable Disposition: HOME Prescriptions: DOXYcycline CAP(*) [DOXYcycline 100MG CAP(*)] 100 mg PO BID #20 cap Patient Education Materials: Insect Bite or Sting (ED) Referrals: Jeniffer Monzon MD [Primary Care Provider] - Additional Instructions: FOLLOW UP WITH YOUR DOCTOR IF NOT COMPLETELY IMPROVED. GET RECHECKED SOONER IF YOUR CONDITION WORSENS: SPREAD OF INFECTION, YOU FEEL ILL OR ANY QUESTIONS OR CONCERNS. - Billing Disposition and Condition Condition: STABLE Disposition: Home
== END 2018-09-23 07:45 | disposition home or self-care (01) ==
LOC: UCEAST 07:03
DX: S40.862A Insect bite (nonvenomous) of left upper arm, initial encounter (principal); W57.XXXA Bitten or stung by nonvenomous insect and other nonvenomous arthropods, initial encounter; Y92.9 Unspecified place or not applicable; I10 Essential (primary) hypertension; E03.9 Hypothyroidism, unspecified; E78.5 Hyperlipidemia, unspecified
CPT/HCPCS: 99212; G0463

== ENCOUNTER → 2018-10-18 12:46 | Day surgery (SDC) | payer MEDICARE ==
[~2018-10-18 12:46] MED LIST: Acetaminophen TAB* 325 MG PO PRN; Buffered Lidocaine 1% SYRIN* 1 ML/SYRINGE INTRADERM ONE; DiMENhydriNATE IV* 50 MG/ML VIAL IV PUSH PRN; EPINEPHRINE 1 MG/ML 1 ML VIAL ONE; Ketorolac INJ* 30 MG/ML 1 ML VIAL IV PRN; Ketorolac INJ* 30 MG/ML 1 ML VIAL ONE; Lactated Ringers 1000 ML Bag* 1,000 ML IV SCH; Lidocaine 4% TOPICAL* 50 ML TOP.SOLN ONE; Midazolam* 1 MG/ML 2 ML VIAL (2 MG) ONE; Naloxone* 0.4 MG/ML 1 ML VIAL IV PRN; Oxymetazoline 0.05% NASAL SPR* 15 ML BTL ONE; Sodium Citrate/Citric Acid* 15 ML UDC ONE; Sodium Citrate/Citric Acid* 15 ML UDC PO ONE; fentaNYL* 50 MCG/ML 2 ML VIAL (100 MCG VIAL) IV PRN; fentaNYL* 50 MCG/ML 2 ML VIAL (100 MCG VIAL) ONE; oxyCODONE/Acetamin 5/325 MG* TAB PO PRN
[2018-10-18 17:19] VITALS: BP 127/61
--- NOTE | 2018-10-18 21:11 | OP ---
DATE OF OPERATION: 10/18/18 - [facility] DATE OF : 47 SURGEON: Eber Leblanc MD PRE-OP DIAGNOSIS: Dysphagia, suspicious lesion of left lateral pharynx, base of the tongue. POST-OP DIAGNOSIS: Dysphagia, suspicious lesion of left lateral pharynx, base of the tongue. OPERATIVE PROCEDURE: Excision of mucosal lesion cyst infected left lateral pharyngeal wall and biopsy of tongue base. BRIEF HISTORY: This is a pleasant 73-year-old gentleman who presented with mild dysphagia and odynophagia. Flexible laryngoscopy showed a somewhat suspicious lesion. Symptoms persisted, elected for biopsy and resection of lesion. DESCRIPTION OF PROCEDURE: The patient was taken to the operating room. General anesthetic was given. The patient was intubated. The tongue was elevated with laryngoscope. Microscope was utilized subsequently. The tongue base was examined. Cup forceps biopsy of the tongue base was carried out. Obvious large mucosal cyst was identified of the left pharyngeal wall. Sharp scissors were used to circumcise the lesion. It appeared to be an infected mucosal cyst. Once ruptured, the mucosa was pulled out with the cup forceps. Foul odor was noted. This cyst was also sent for biopsy. The area was packed with some adrenaline. The patient was then awakened, extubated and sent to the recovery room in stable condition. Instrument and sponge counts were correct. Blood loss minimal. [id number]/[facility] #: [id number] MTDD
== END | disposition home or self-care (01) ==
LOC: OR 12:46
PROVIDERS: ATTEND Otolaryngology
DX: K14.8 Other diseases of tongue (principal); R22.1 Localized swelling, mass and lump, neck; R13.10 Dysphagia, unspecified; R04.2 Hemoptysis; E03.9 Hypothyroidism, unspecified; M81.0 Age-related osteoporosis without current pathological fracture; L40.9 Psoriasis, unspecified; M25.529 Pain in unspecified elbow
CPT/HCPCS: 88305; A9270-GY; J1885; J2250; J3010